=== PATIENT | female | born 1960 | race Caucasian/White ===

== ENCOUNTER → 2018-07-27 | Outpatient (CLI) | payer SELFPAY ==
[2015-04-04 04:52] VITALS: BP 148/75
[~2018-07-27] MED LIST: CITA20TA6 PO; CRESTOR10 MG PO; GABA-586 PO; INSU100I13 SQ; LISI1TAB7 PO; METF500T16 PO; METO25TA4 PO; MOME17SP NS; UBID100C40 PO
[2018-07-27 17:57] LABS: BASO # 0.1 x10^3/uL (0.0-0.2); BASO % 1 % (0-3); EOS # 0.5 x10^3/uL (0.0-0.7); EOS % 6 % (0-3); HEMATOCRIT 41.6 % (36.0-47.0); HEMOGLOBIN 14.3 g/dL (12.0-15.5); LYMPH # 2.3 x10^3/uL (1.0-4.8); LYMPH % 27 % (24-48); MEAN CORPUSCULAR HEMOGLOBIN 28 pg (25-35); MEAN CORPUSCULAR HGB CONC 34 g/dL (31-37); MEAN CORPUSCULAR VOLUME 82 fL (79-100); MONO # 0.6 x10^3/uL (0.0-1.1); MONO % 7 % (0-9); NEUT # 5.1 x10^3uL (1.8-7.7); NEUT % 60 % (31-73); PLATELET COUNT 249 x10^3/uL (140-400); RED BLOOD COUNT 5.05 x10^6/uL (3.50-5.40); RED CELL DISTRIBUTION WIDTH 14.5 % (11.5-14.5); WHITE BLOOD COUNT 8.6 x10^3/uL (4.0-11.0)
[2018-07-27 18:14] LABS: ALBUMIN 3.1 g/dL (3.4-5.0); ALBUMIN/GLOBULIN RATIO 0.9 (1.0-1.7); CALCIUM 8.9 mg/dL (8.5-10.1); CREATININE 1.6 mg/dL (0.6-1.0); GFR 33.3; POTASSIUM 4.7 mmol/L (3.5-5.1); TOTAL BILIRUBIN 0.4 mg/dL (0.2-1.0); TOTAL PROTEIN 6.6 g/dL (6.4-8.2)
[2018-07-28 02:18] LABS: HEMOGLOBIN A1C 8.1 % (4.8-5.6)
== END | disposition home or self-care (01) ==
LOC: SPEC 17:28
PROVIDERS: ATTEND Family Medicine
DX: E11.9 Type 2 diabetes mellitus without complications (principal); I10 Essential (primary) hypertension
CPT/HCPCS: 36415; 80053; 83036; 84443; 85025

== ENCOUNTER 2020-08-25 16:57 | Inpatient (IN) | payer BC ==
[~2020-08-25] VITALS: Ht 170.2 cm; Wt 113.8 kg
[~2020-08-25 16:57] MED LIST changes: +LISI1TAB20 PO; -LISI1TAB7 PO
[2020-08-25] MEDS ORDERED: IV NORMAL SALINE 1,000ML 1,000 ML IV ONE (17:15)
--- NOTE | 2020-08-25 17:18 | RAD ---
EXAM: CT Head without IV contrast INDICATION: Reason: slurred speech, right facial droop, right weakness / Spl. Instructions: / Histor y: TECHNIQUE: Multi-detector row CT images were obtained of the head without the use of IV contrast. All CT scans performed at this facility utilize dose optimization techniques as appropriate to the exam, including the following: Automated exposure control and adjustment of the mA and/or KV according to patient size (this includes techniques or standardized protocols for targeted exams where dose is ind ication/reason for exam). COMPARISON: None FINDINGS: BRAIN PARENCHYMA: No evidence of acute intraparenchymal hemorrhage or infarct. Generalized parenchyma l volume loss and white matter low density compatible chronic ischemic microvascular changes present VENTRICLES & EXTRA-AXIAL SPACES: Ventricles are within normal limits. Basilar cisterns are patent. N o pathologic extra-axial fluid collection or mass. ORBITS: Orbital contents are unremarkable. SINUSES: Visualized paranasal sinuses and mastoid air cells are clear. OSSEOUS & SOFT TISSUES: Calvarium and skull base are intact. IMPRESSION: No acute intracranial pathology. FOR INTERNAL CODING PURPOSES Critical result: Findings discussed with Dr. Jack Rendon at 08/25/2020 5:15 PM. RESULT CODE: (C) Electronically signed by: Franny Lacey MD (08/25/2020 5:15 PM) [id number]
--- NOTE | 2020-08-25 17:57 | RAD ---
INDICATION: Reason: CODE stroke, right sided weakness, slurred speech / Spl. Instructions: / History : COMPARISON: March 2015 FINDINGS: Single view of chest obtained. Prominent cardiomediastinal silhouette likely exaggerated by portable technique. Left lung base is la rgely obscured by overlying cardiac silhouette. Mild interstitial opacities bilaterally IMPRESSION: * Mild interstitial opacities bilaterally without a well-defined focal airspace consolidation. Electronically signed by: Noah Rubio MD (08/25/2020 5:54 PM) [id number]
--- NOTE | 2020-08-25 18:00 | PHYS DOC ---
Past History Past Medical History: Diabetes, High Cholesterol, Hypertension, Other Past Surgical History: Other Smoking: Non-smoker Alcohol Use: Rarely Drug Use: None General Adult EDM: Chief Complaint: NEURO SYMPTOMS/DEFICITS HPI: HPI: 60 year old female presents via EMS as CODE STROKE activation. Patient reports she awoke this AM with right sided weakness including facial droop and facial numbness and slurred speech. Reports last known well was 2200 last night when she went to bed. Denies prior history of CVA. Reports risk factors of DM, HTN, and hyperchol. Denies trauma. Denies headache. Denies fever/chills. Denies cough. Denies use of blood thinners. Denies known exposure to COVID-19. Review of Systems: Review of Systems: Constitutional: Denies fever or chills Eyes: Denies redness or eye pain HENT: Denies nasal congestion or sore throat Respiratory: Denies cough or shortness of breath Cardiovascular: Denies chest pain or palpitations GI: Denies abdominal pain, nausea, or vomiting : Denies dysuria or hematuria Musculoskeletal: Denies back pain or joint pain Integument: Denies rash or skin lesions Neurologic: Denies headache; reports right sided weakness, facial droop, and slurred speech Complete systems were reviewed and found to be within normal limits, except as documented in this note. Current Medications: Current Meds: Current Medications Medications (Trade) Dose Ordered Sig/Fernando Start Time Stop Time Status Last Admin Dose Admin Sodium Chloride 1,000 ml @ 1,000 mls/hr 1X ONCE 08/25/20 17:15 08/25/20 18:14 Allergies: Allergies: Allergies Coded Allergies Type Severity Reaction Last Updated Verified shellfish derived Allergy Intermediate 08/25/20 Yes Physical Exam: PE: Constitutional: Well developed, well nourished, non-toxic appearance HENT: Normocephalic, atraumatic Eyes: PERRL, EOMI, conjunctiva normal, no discharge Neck: Normal range of motion, no tenderness, supple Lungs & Thorax: No respiratory distress, equal chest rise and fall Abdomen: Soft, no tenderness Skin: Warm, dry, no erythema, no rash Back: No tenderness, no CVA tenderness Extremities: No tenderness, ROM intact, no edema Neurologic: Alert and oriented X 3, moderate dysarthria and right facial droop noted, right leg with slight drift on straight leg, and decreased sensation to right face in comparison, no other focal deficit noted with NIHSS testing (see attached) Psychologic: Affect normal, judgment normal Current Patient Data: Labs: Laboratory Tests Test 08/25/20 17:11 Glucose (Fingerstick) 224 mg/dL (70-99) H EKG: EKG: @1708 NSR at 87bpm, NO ST elevation, QRS 84ms, QT/QTc 390/470ms Radiology/Procedures: Radiology/Procedures: PROCEDURE: CT CODE STROKE HEAD WO EXAM: CT Head without IV contrast INDICATION: Reason: slurred speech, right facial droop, right weakness / Spl. Instructions: / History: TECHNIQUE: Multi-detector row CT images were obtained of the head without the use of IV contrast. All CT scans performed at this facility utilize dose optimization techniques as appropriate to the exam, including the following: Automated exposure control and adjustment of the mA and/or KV according to patient size (this includes techniques or standardized protocols for targeted exams where dose is indication/reason for exam). COMPARISON: None FINDINGS: BRAIN PARENCHYMA: No evidence of acute intraparenchymal hemorrhage or infarct. Generalized parenchymal volume loss and white matter low density compatible chronic ischemic microvascular changes present VENTRICLES & EXTRA-AXIAL SPACES: Ventricles are within normal limits. Basilar cisterns are patent. No pathologic extra-axial fluid collection or mass. ORBITS: Orbital contents are unremarkable. SINUSES: Visualized paranasal sinuses and mastoid air cells are clear. OSSEOUS & SOFT TISSUES: Calvarium and skull base are intact. IMPRESSION: No acute intracranial pathology. FOR INTERNAL CODING PURPOSES Critical result: Findings discussed with Dr. Jack Caruso at 08/25/2020 5:15 PM. RESULT CODE: (C) PROCEDURE: CHEST AP ONLY INDICATION: Reason: CODE stroke, right sided weakness, slurred speech / Spl. Instructions: / History: COMPARISON: March 2015 FINDINGS: Single view of chest obtained. Prominent cardiomediastinal silhouette likely exaggerated by portable technique. Left lung base is largely obscured by overlying cardiac silhouette. Mild interstitial opacities bilaterally IMPRESSION: * Mild interstitial opacities bilaterally without a well-defined focal airspace consolidation. Electronically signed by: Noah Rubio MD (08/25/2020 5:54 PM) [id number] Electronically signed by: Franny Lacey MD (08/25/2020 5:15 PM) [id number] Course & Med Decision Making: Course & Med Decision Making Pertinent Labs and Imaging studies reviewed. (See chart for details) Patient presents via EMS as CODE STROKE. Last known well at 2200 last night when patient went to bed. Patient reports she awoke with the symptoms. NIHSS 4. CT head without acute process. EKG stable. Labs obtained and posted to chart. CXR stable. ASA given. Patient with significantly elevated blood pressure requiring treatment. Patient outside window for TPA or for neuro-intervention at this time. Patient requiring admission for further evaluation and treatment. Discussed with Dr. Candelaria (hospitalist) who is in agreement with admission. Discussed case with Dr. Mcdonnell (neurology) regarding consultation and in agreement. Discussed findings and plan with patient, who acknowledges understanding and agreement. Dragon Disclaimer: Dragon Disclaimer: This electronic medical record was generated, in whole or in part, using a voice recognition dictation system. Departure Departure: Impression: Primary Impression: Acute ischemic stroke Additional Impression: Hypertensive urgency Disposition: ADMITTED INPT THIS HOSP Admitting Physician: Anni Candelaria Condition: GUARDED Referrals: PCP,NO (PCP) NIHSS - ED NIH Stroke Scale: NIH Stroke Scale Response (Comments) Value Level of Consciousness: 0 Alert/Responsive 0 LOC Questions: 0 Answers both correctly 0 LOC Commands: 0 Performs both tasks 0 Best Gaze: 0 Normal 0 Visual: 0 No visual loss 0 Facial Palsy: 1 Minor paralysis 1 Motor - Left Arm 0 No drift 0 Motor - Right Arm 0 No drift 0 Motor - Left Leg 0 No drift 0 Motor: Right Leg 1 Drift but can hold 1 Limb Ataxia: 0 Absent 0 Sensory: 1 Mid to moderate loss 1 Best Language: 0 Normal 0 Dysathria: 1 Mild to moderate 1 Extinction and Inattention: 0 Normal 0 Total 4 Critical Care Time Critical care time was 30 minutes which includes time at bedside, spent in discussion of patient's care with specialists and/or family members, with interpretation of laboratory and/or radiological studies and is exclusive of procedures. JACK CARUSO DO Aug 25, 2020 18:00
[2020-08-25 18:05] LABS: BASO # 0.1 x10^3/uL (0.0-0.2); BASO % 1 % (0-3); EOS # 0.5 x10^3/uL (0.0-0.7); EOS % 6 % (0-3); HEMATOCRIT 35.6 % (36.0-47.0); HEMOGLOBIN 11.9 g/dL (12.0-15.5); LYMPH % 23 % (24-48); MEAN CORPUSCULAR HEMOGLOBIN 27 pg (25-35); MEAN CORPUSCULAR HGB CONC 33 g/dL (31-37); MEAN CORPUSCULAR VOLUME 81 fL (79-100); MONO # 0.6 x10^3/uL (0.0-1.1); MONO % 7 % (0-9); NEUT # 5.5 x10^3uL (1.8-7.7); NEUT % 64 % (31-73); PLATELET COUNT 233 x10^3/uL (140-400); RED CELL DISTRIBUTION WIDTH 14.5 % (11.5-14.5); WHITE BLOOD COUNT 8.6 x10^3/uL (4.0-11.0)
[2020-08-25 18:11] LABS: CALCIUM 7.9 mg/dL (8.5-10.1); CREATININE 2.5 mg/dL (0.6-1.0); GFR 19.8; POTASSIUM 3.9 mmol/L (3.5-5.1)
[2020-08-25] MEDS ORDERED: DEXTROSE 50% 25 GM / 50ML DISP.SYRIN. IV PRN (18:15)
[2020-08-25] MEDS ORDERED: ASPIRIN ENTERIC COATED 325 MG TABLET.DR. PO ONE (18:15)
[2020-08-25] MEDS ORDERED: LABETALOL 20 MG/4 ML DISP.SYRIN. IVP ONE (18:15)
--- NOTE | 2020-08-25 18:15 | EKG ---
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
[2020-08-25 18:33] LABS: ALBUMIN 2.3 g/dL (3.4-5.0); ALBUMIN/GLOBULIN RATIO 0.7 (1.0-1.7); TOTAL BILIRUBIN 0.2 mg/dL (0.2-1.0); TOTAL PROTEIN 5.4 g/dL (6.4-8.2)
[2020-08-25] MEDS ORDERED: hydrALAZINE 20 MG/ML VIAL. IV ONE (18:45)
[2020-08-25 20:23] VITALS: BP 213/94
[2020-08-25 21:49] VITALS: BP 184/75
[2020-08-25] MEDS: hydrALAZINE 20 MG/ML VIAL. IV PRN (23:06)
[2020-08-25 23:35] VITALS: BP 161/93
[2020-08-25] MEDS ORDERED: GLIP-24 PO (23:35)
[2020-08-25] MEDS ORDERED: LISI1TAB23 PO (23:35)
[2020-08-25] MEDS ORDERED: ATOR40TA59 PO (23:35)
--- NOTE | 2020-08-25 23:36 | NUR ---
PT presented with RT-sided weakness of upper and lower extremities with RT-sided facial droop. PT with noted slurring. PT states she awoke this am with these symptoms but thought she slept wrong and went to work. 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 PT states that no one noticed anything all day. PT ate and drank as usual. PT had a cane for when she injured her foot and used that today. Swallow ability tested with water. PT with noted aspiration/coughing on very large drink; none with small sips. PT advised to take smaller sips. After several hours, PT asked for a snack, given yogurt, tolerated well. Reviewed with PT her PMH, PSH, SH, FH and medications. PT belongings noted. Vital signs obtained.
--- NOTE | 2020-08-25 23:46 | NUR ---
PT made NPO. MAIL CLERK BILLS ordered for am.
[2020-08-26] VITALS (8 sets, daily range): BP systolic 138–250; BP diastolic 75–116
[2020-08-26] MEDS: ONDANSETRON PF 4 MG/2 ML VIAL. IVP PRN ×3 (01:03→09:51)
[2020-08-26 02:06] LABS: BARBITURATES NEG (NEG); BENZODIAZEPINES NEG (NEG); CANNABINOIDS NEG (NEG); COCAINE NEG (NEG); METHADONE NEG (NEG); OPIATES NEG (NEG); PHENCYCLIDINE NEG (NEG)
[2020-08-26 02:09] LABS: AMPHETAMINE/METHAMPHETAMINE NEG (NEG)
[2020-08-26 02:14] LABS: BACTERIA,URINE FEW /HPF (0-FEW); BILIRUBIN,URINE NEG (NEG); CLARITY,URINE CLEAR; COLOR,URINE YELLOW; GLUCOSE,URINE 250 mg/dL (NEG); NITRITE,URINE NEG (NEG); RBC,URINE OCC /HPF (0-2); SQUAMOUS EPITHELIAL CELL,UR FEW /LPF; UROBILINOGEN,URINE 0.2 mg/dL (0.2 mg/dL)
[2020-08-26] MEDS: hydrALAZINE 20 MG/ML VIAL. IV PRN (05:31)
[2020-08-26 06:32] LABS: BASO # 0.1 x10^3/uL (0.0-0.2); BASO % 1 % (0-3); EOS # 0.3 x10^3/uL (0.0-0.7); EOS % 2 % (0-3); HEMATOCRIT 34.8 % (36.0-47.0); HEMOGLOBIN 11.4 g/dL (12.0-15.5); LYMPH # 1.2 x10^3/uL (1.0-4.8); LYMPH % 11 % (24-48); MEAN CORPUSCULAR HEMOGLOBIN 27 pg (25-35); MEAN CORPUSCULAR HGB CONC 33 g/dL (31-37); MEAN CORPUSCULAR VOLUME 82 fL (79-100); MONO # 0.5 x10^3/uL (0.0-1.1); MONO % 4 % (0-9); NEUT % 82 % (31-73); PLATELET COUNT 230 x10^3/uL (140-400); RED BLOOD COUNT 4.25 x10^6/uL (3.50-5.40); RED CELL DISTRIBUTION WIDTH 14.1 % (11.5-14.5); WHITE BLOOD COUNT 11.1 x10^3/uL (4.0-11.0)
[2020-08-26] MEDS: LABETALOL 20 MG/4 ML DISP.SYRIN. IVP PRN ×2 (06:34→13:18)
[2020-08-26 06:46] LABS: ALBUMIN 2.2 g/dL (3.4-5.0); ALBUMIN/GLOBULIN RATIO 0.6 (1.0-1.7); CREATININE 2.4 mg/dL (0.6-1.0); GFR 20.7; POTASSIUM 3.4 mmol/L (3.5-5.1); TOTAL BILIRUBIN 0.4 mg/dL (0.2-1.0); TOTAL PROTEIN 5.9 g/dL (6.4-8.2)
--- NOTE | 2020-08-26 06:59 | NUR ---
PT with increasing BP, meds given. Ineffective first dosing this am. Labetolol IVP added. PT with N/V, given Zofran, noted improvement. BP rechecked, improvement noted.
[2020-08-26] MEDS: INSULIN LISPRO 300 UNITS/3 ML VIAL. SQ SCH ×2 (08:00→12:00)
[2020-08-26] MEDS ORDERED: metFORMIN 500 MG TABLET PO SCH (08:00)
--- NOTE | 2020-08-26 08:40 | PDOC2 ---
CARDIAC CONSULT DATE OF CONSULT DOS: DATE: 08/26/20 TIME: 08:31 REASON FOR CONSULT Reason for Consult Increased troponin CVA REFERRING PHYSICIAN Referring Physician Dr. Candelaria SOURCE Source: Chart review, Patient HPI History of Present Illness This is a 60 yo female who presented secondary to right sided weakness and facial drop. Patient reports this began upon awakening yesterday morning. Denies any associated dizziness, diaphoresis, chest pain, or nausea/vomiting. No recent fevers or illness. Blood pressure significantly elevated upon arrival. Reports complains with meds at home. PAST MEDICAL HISTORY Cardiovascular: HTN, hyperipidemia Renal/: Chronic renal insuff Endocrine: Diabetes PAST SURGICAL HISTORY Past Surgical History: Cholecystectomy, Tubal Ligation FAMILY HISTORY Family History: Diabetes, Hypertension SOCIAL HISTORY Smoke: Quit ALCOHOL: none Drugs: None Lives: with Family CURRENT MEDICATIONS Current Medications Current Medications Sodium Chloride 1,000 ml @ 1,000 mls/hr 1X ONCE IV Last administered on 08/25/20at 18:15; Start 08/25/20 at 17:15; Stop 08/25/20 at 18:14; Status DC Labetalol HCl (Normodyne) 10 mg 1X ONCE IVP Last administered on 08/25/20at 18 :16; Start 08/25/20 at 18:15; Stop 08/25/20 at 18:16; Status DC Aspirin (Aspirin Enteric Coated) 325 mg 1X ONCE PO Last administered on 08/25/20at 18:15; Start 08/25/20 at 18:15; Stop 08/25/20 at 18:16; Status DC Insulin Human Lispro (HumaLOG) 0-5 UNITS TIDWMEALS SQ ; Start 08/26/20 at 08:00 Dextrose (Dextrose 50%-Water Syringe) 12.5 gm PRN Q15MIN PRN IV SEE COMMENTS; Start 08/25/20 at 18:15 Ondansetron HCl (Zofran) 4 mg PRN Q4HRS PRN IVP NAUSEA/VOMITING Last administered on 08/26/20at 06:31; Start 08/25/20 at 18:15; Stop 08/26/20 at 18:14 Hydralazine HCl (Apresoline) 20 mg 1X ONCE IV Last administered on 08/25/20at 18:45; Start 08/25/20 at 18:45; Stop 08/25/20 at 18:46; Status DC Hydralazine HCl (Apresoline) 10 mg PRN Q4HRS PRN IV ELEVATED BP, SEE COMMENTS Last administered on 08/26/20at 05:31; Start 08/25/20 at 19:00 Citalopram Hydrobromide (CeleXA) 20 mg DAILY PO ; Start 08/26/20 at 09:00 Gabapentin (Neurontin) 300 mg BID PO ; Start 08/26/20 at 09:00 Glipizide (Glucotrol Er) 5 mg DAILY PO ; Start 08/26/20 at 09:00 Metformin HCl (Glucophage) 500 mg DAILYWBKFT PO ; Start 08/26/20 at 08:00; Status UNV Metoprolol Tartrate (Lopressor) 50 mg BID PO ; Start 08/26/20 at 09:00 Atorvastatin Calcium (Lipitor) 40 mg QHS PO ; Start 08/26/20 at 21:00 Lisinopril (Prinivil) 10 mg DAILY PO ; Start 08/26/20 at 09:00 Hydrochlorothiazide (Microzide) 12.5 mg DAILY PO ; Start 08/26/20 at 09:00 Labetalol HCl (Normodyne) 20 mg PRN Q4HRS PRN IVP HYPERTENSION Last administered on 08/26/20at 06:34; Start 08/26/20 at 06:30 Active Scripts Active Reported Glipizide Xl (Glipizide) 5 Mg Tab.er.24 1 Tab PO DAILY 30 Days Atorvastatin Calcium 40 Mg Tablet 1 Tab PO QHS Lisinopril-Hctz 10-12.5 Mg Tab (Lisinopril/Hydrochlorothiazide) 1 Each Tablet 1 Tab PO DAILY Citalopram Hbr (Citalopram Hydrobromide) 20 Mg Tablet 20 Mg PO DAILY for mood last dose this morning next dose tomorrow morning Metoprolol Tartrate 25 Mg Tablet 50 Mg PO BID written Rx provided for high blood pressure last dose today after test next dose tonight Metformin Hcl 500 Mg Tablet 500 Mg PO DAILYWBKFT for high blood sugar held during admission Gabapentin (Gabapentin) 300 Mg Capsule 300 Mg PO TID for neuropathy last dose 04/02 @ bedtime next dose tonight @ bedtime ALLERGIES Allergies: Coded Allergies: shellfish derived (Verified Allergy, Intermediate, 2/1/21) ROS Review of Systems 14 point ROS conducted with pertinent positives noted above in HPI PHYSICAL EXAM General: Alert, Oriented X3, Cooperative, No acute distress HEENT: Atraumatic Lungs: Clear to auscultation Heart: Regular rate (SR) Abdomen: Soft, No tenderness Extremities: No edema, Normal pulses Skin: No breakdown Neuro: Normal speech, Sensation intact, Other (right facial droop) Psych/Mental Status: Mental status NL, Mood NL MUSCULOSKELETAL: Abnormal exam of right (right sided weakness) VITALS Vital Signs Vital Signs Date Time Temp Pulse Resp B/P (MAP) Pulse Ox O2 Delivery O2 Flow Rate FiO2 08/26/20 06:56 83 16 138/75 (96) 91 Room Air 08/26/20 06:11 98.1 LABS LABS Laboratory Tests Test 08/25/20 17:03 08/25/20 17:11 08/25/20 21:13 08/25/20 22:52 White Blood Count 8.6 x10^3/uL (4.0-11.0) Red Blood Count 4.40 x10^6/uL (3.50-5.40) Hemoglobin 11.9 g/dL (12.0-15.5) Hematocrit 35.6 % (36.0-47.0) Mean Corpuscular Volume 81 fL (79-100) Mean Corpuscular Hemoglobin 27 pg (25-35) Mean Corpuscular Hemoglobin Concent 33 g/dL (31-37) Red Cell Distribution Width 14.5 % (11.5-14.5) Platelet Count 233 x10^3/uL (140-400) Neutrophils (%) (Auto) 64 % (31-73) Lymphocytes (%) (Auto) 23 % (24-48) Monocytes (%) (Auto) 7 % (0-9) Eosinophils (%) (Auto) 6 % (0-3) Basophils (%) (Auto) 1 % (0-3) Neutrophils # (Auto) 5.5 x10^3uL (1.8-7.7) Lymphocytes # (Auto) 2.0 x10^3/uL (1.0-4.8) Monocytes # (Auto) 0.6 x10^3/uL (0.0-1.1) Eosinophils # (Auto) 0.5 x10^3/uL (0.0-0.7) Basophils # (Auto) 0.1 x10^3/uL (0.0-0.2) Prothrombin Time 10.0 SEC (9.4-11.4) Prothromb Time International Ratio 1.0 (0.9-1.1) Activated Partial Thromboplast Time 24 SEC (23-33) Sodium Level 141 mmol/L (136-145) Potassium Level 3.9 mmol/L (3.5-5.1) Chloride Level 106 mmol/L (98-107) Carbon Dioxide Level 27 mmol/L (21-32) Anion Gap 8 (6-14) Blood Urea Nitrogen 27 mg/dL (7-20) Creatinine 2.5 mg/dL (0.6-1.0) Estimated GFR (Cockcroft-Gault) 19.8 BUN/Creatinine Ratio 11 (6-20) Glucose Level 194 mg/dL (70-99) Lactic Acid Level 0.8 mmol/L (0.4-2.0) Calcium Level 7.9 mg/dL (8.5-10.1) Total Bilirubin 0.2 mg/dL (0.2-1.0) Aspartate Amino Transf (AST/SGOT) 14 U/L (15-37) Alanine Aminotransferase (ALT/SGPT) 16 U/L (14-59) Alkaline Phosphatase 98 U/L (46-116) Creatine Kinase 76 U/L (26-192) Creatine Kinase MB (Mass) 2.0 ng/mL (0.0-3.6) Creatine Kinase MB Relative Index 2.6 % (0-4) Troponin I Quantitative 0.032 ng/mL (0-0.055) 0.044 ng/mL (0-0.055) Total Protein 5.4 g/dL (6.4-8.2) Albumin 2.3 g/dL (3.4-5.0) Albumin/Globulin Ratio 0.7 (1.0-1.7) Ethyl Alcohol Level < 10 mg/dL (0-10) Glucose (Fingerstick) 224 mg/dL (70-99) 178 mg/dL (70-99) Test 08/26/20 00:35 08/26/20 01:34 08/26/20 05:35 Troponin I Quantitative 0.089 ng/mL (0-0.055) Urine Collection Type Unknown Urine Color Yellow Urine Clarity Clear Urine pH 7.0 Urine Specific [place] 1.020 Urine Protein >100 mg/dl (NEG-TRACE) Urine Glucose (UA) 250 mg/dL (NEG) Urine Ketones (Stick) Neg mg/dL (NEG) Urine Blood Small (NEG) Urine Nitrite Neg (NEG) Urine Bilirubin Neg (NEG) Urine Urobilinogen Dipstick 0.2 mg/dL (0.2 mg/dL) Urine Leukocyte Esterase Neg (NEG) Urine RBC Occ /HPF (0-2) Urine WBC 5-10 /HPF (0-4) Urine Squamous Epithelial Cells Few /LPF Urine Bacteria Few /HPF (0-FEW) Urine Opiates Screen Neg (NEG) Urine Methadone Screen Neg (NEG) Urine Barbiturates Neg (NEG) Urine Phencyclidine Screen Neg (NEG) Urine Amphetamine/Methamphetamine Neg (NEG) Urine Benzodiazepines Screen Neg (NEG) Urine Cocaine Screen Neg (NEG) Urine Cannabinoids Screen Neg (NEG) Urine Ethyl Alcohol Neg (NEG) White Blood Count 11.1 x10^3/uL (4.0-11.0) Red Blood Count 4.25 x10^6/uL (3.50-5.40) Hemoglobin 11.4 g/dL (12.0-15.5) Hematocrit 34.8 % (36.0-47.0) Mean Corpuscular Volume 82 fL (79-100) Mean Corpuscular Hemoglobin 27 pg (25-35) Mean Corpuscular Hemoglobin Concent 33 g/dL (31-37) Red Cell Distribution Width 14.1 % (11.5-14.5) Platelet Count 230 x10^3/uL (140-400) Neutrophils (%) (Auto) 82 % (31-73) Lymphocytes (%) (Auto) 11 % (24-48) Monocytes (%) (Auto) 4 % (0-9) Eosinophils (%) (Auto) 2 % (0-3) Basophils (%) (Auto) 1 % (0-3) Neutrophils # (Auto) 9.0 x10^3uL (1.8-7.7) Lymphocytes # (Auto) 1.2 x10^3/uL (1.0-4.8) Monocytes # (Auto) 0.5 x10^3/uL (0.0-1.1) Eosinophils # (Auto) 0.3 x10^3/uL (0.0-0.7) Basophils # (Auto) 0.1 x10^3/uL (0.0-0.2) Sodium Level 142 mmol/L (136-145) Potassium Level 3.4 mmol/L (3.5-5.1) Chloride Level 106 mmol/L (98-107) Carbon Dioxide Level 23 mmol/L (21-32) Anion Gap 13 (6-14) Blood Urea Nitrogen 24 mg/dL (7-20) Creatinine 2.4 mg/dL (0.6-1.0) Estimated GFR (Cockcroft-Gault) 20.7 BUN/Creatinine Ratio 10 (6-20) Glucose Level 229 mg/dL (70-99) Calcium Level 8.0 mg/dL (8.5-10.1) Total Bilirubin 0.4 mg/dL (0.2-1.0) Aspartate Amino Transf (AST/SGOT) 14 U/L (15-37) Alanine Aminotransferase (ALT/SGPT) 16 U/L (14-59) Alkaline Phosphatase 90 U/L (46-116) Total Protein 5.9 g/dL (6.4-8.2) Albumin 2.2 g/dL (3.4-5.0) Albumin/Globulin Ratio 0.6 (1.0-1.7) ECHOCARDIOGRAM Echocardiogram <Conclusion> The left ventricle is normal size. Left ventricle systolic function is normal. The Ejection Fraction is 60-65%. There is borderline concentric left ventricular hypertrophy. There is no significant aortic valvular stenosis. Doppler and Color Flow revealed no significant aortic regurgitation. Doppler and Color Flow revealed mild mitral regurgitation. Doppler and Color Flow revealed trace tricuspid regurgitation. The PA pressure was estimated at 29 mmHg. There is no evidence of significant pericardial effusion. DATE: 04/02/15 1228 ASSESSMENT/PLAN Assessment/Plan 1. Acute onset right sided weakness, probable acute CVA 2. ROLANDA on CKD 3. Hypertensive urgency; better this am 4. Elevated troponin; highest 0.089. Most probable type II, demand ischemia in setting of above 5. Hyperlipidemia; statin 6. Diabetes, II 7. Hypokalemia Recommendations Secondary prevention ASA, statin Lipids Echo to assess LV systolic function, r/o cardiac anomalies Resume home antiHTN therapy Hydralazine IV PRN Allow for higher baseline blood pressure given concerns for acute stroke Replace K. Check Mg and replace as warranted Rehab modalities Follow neuro recs BRIAN DECKER APRN Aug 26, 2020 08:40
[2020-08-26] MEDS ORDERED: LISINOPRIL 10 MG TABLET PO SCH (09:00)
[2020-08-26] MEDS ORDERED: CITALOPRAM 20 MG TABLET. PO SCH (09:00)
[2020-08-26] MEDS ORDERED: METOPROLOL TART IMMED RELEASE 25 MG TABLET. PO SCH (09:00)
[2020-08-26] MEDS ORDERED: hydroCHLOROthiazide 12.5 MG CAPSULE PO SCH (09:00)
[2020-08-26] MEDS ORDERED: GABAPENTIN 300 MG CAPSULE. PO SCH (09:00)
[2020-08-26] MEDS ORDERED: POTASSIUM CHLORIDE 20 MEQ TABLET.ER. PO ONE (10:00)
[2020-08-26] MEDS ORDERED: MAGNESIUM SULFATE 2GM 50 ML IV ONE ×2 (10:00→11:00)
[2020-08-26] MEDS ORDERED: ASPIRIN ENTERIC COATED 81 MG TABLET.DR. PO SCH (10:00)
--- NOTE | 2020-08-26 10:24 | CONS ---
DATE OF CONSULTATION: NEUROLOGY CONSULTATION REFERRING PHYSICIAN: Dr. Candelaria REASON FOR CONSULTATION: Slurred speech and weakness of the right upper and lower extremities, rule out acute stroke. HISTORY OF PRESENT ILLNESS: This is a 60-year-old right-handed female who has had longstanding history of hypertension, diabetes mellitus and hyperlipidemia, stated she was admitted through Emergency Room after she woke up the morning of yesterday with severe headaches, slurred speech and weakness of the right upper and lower extremities. She denies any chest pain, but she experience shortness of breath. On arrival to the Emergency Room, her blood pressure was 206/87. She also complains of numbness and paresthesia of the hands. Initial nonenhanced head CT scan revealed no acute intracranial process. During the day, her blood pressure was markedly elevated and this morning was 250/98. She was treated with hydralazine and labetalol intravenously. This morning, the patient denies chest pain, shortness of breath, visual disturbances, but she continues to have right-sided weakness and paresthesia of both hands along with slurred speech and right facial drooping. PAST MEDICAL HISTORY: Significant for hypertension, hyperlipidemia, diabetes mellitus, depressions, obesity, right eye detachment and history of diabetic retinopathy. PAST SURGICAL HISTORY: Positive for x 4, cholecystectomy. FAMILY HISTORY: Positive for obesity. Father had hypertension. Mother had diabetes mellitus and depression. 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 CURRENT HOME MEDICATIONS: Lipitor 40 mg daily, gabapentin 300 mg t.i.d., glipizide 5 mg daily, Celexa 20 mg daily, metformin 500 mg daily, insulin Humalog on sliding scale. HOSPITAL MEDICATIONS: Labetalol 20 mg q. 4 hours p.r.n. intravenously for severe hypertension and hydralazine 10 mg q.4 hours p.r.n. for severe hypertension, Microzide 12.5 mg daily, metoprolol 50 mg b.i.d. ALLERGIES: SHELLFISH ____. REVIEW OF SYSTEMS: A 14-point review of system was performed as mentioned above in history of present illness and consistent with slurred speech, right facial drooping and right-sided weakness. PHYSICAL EXAMINATION: GENERAL: Obese female, not in acute distress. She weighs 113.8 kilos. VITAL SIGNS: Blood pressure 138/75, respiratory rate 16, pulse is 83, temperature is 98.1, oxygen saturation 91% on room air. HEENT: Normocephalic, atraumatic, otherwise unremarkable. NECK: Supple. Negative for carotid bruit, lymphadenopathy or thyromegaly. LUNGS: Clear to A and P. CARDIOVASCULAR: Regular rate and rhythm. Normal S1, S2. There is no S3, S4 or murmur. ABDOMEN: Soft. Bowel sounds positive. EXTREMITIES: Negative for cyanosis, clubbing or edema. NEUROLOGIC: Mental Status: The patient is alert and oriented x 3. The speech is slurred. There is no language dysfunction. Memory, judgment, and abstracting thinking are normal. The patient denies hallucination or delusion. Cranial Nerves: Visual knight are full. The pupils are reactive to light and accommodation. The extraocular movements are intact. There is no nystagmus. There is right facial asymmetry of central type. There is no language dysfunction. Hearing is intact bilaterally. The palate is elevated symmetrically. Sternocleidomastoid muscles are powerful bilaterally. The patient shrugs her shoulders symmetrically, protrudes her tongue in the midline without fasciculation or atrophy. Motor Examination: No focal muscle bulk was seen. The tone is normal. The strength is 4/5 in the right upper and lower extremities compared with those on the left side. Sensory Examination: Revealed normal pinprick, light touch, vibratory and position senses. Deep tendon reflexes were symmetric and hypoactive with absent Achilles responses. Gait: Not tested. LABORATORY DATA: CBC revealed white blood cells of 11.1 thousand, hemoglobin 11.4, hematocrit 34.8, platelet count 230,000. Chemistry revealed sodium of 142, potassium 3.4, chloride 106, CO2 of 23, BUN 24, creatinine 2.4, glucose is 229, calcium is 8. Troponin level is 0.089. Urinalysis is negative urinary leukocyte esterase with white blood cells of 5-10. Urine drug screen is negative. IMPRESSION: 1. Status post acute stroke resulted in dense right hemiparesis and slurred speech secondary to right facial droop. The patient has multiple risk factors including emergent hypertension, diabetes mellitus, hyperlipidemia. 2. Multiple medical problems include hypertension, diabetes mellitus, hyperlipidemia, obesity, mild hypokalemia and renal disease/renal insufficiency. RECOMMENDATIONS: Complete stroke workup including echocardiogram, antiplatelet agents, aspirin 325 mg daily, patient needs PT/OT evaluation and treat the underlying multiple risk factors for stroke. The patient also needs brain MRI after she became medically stable. M Blaine CESAR MD DR: LUIS A/raul JOB#: [id number] / [id number]
--- NOTE | 2020-08-26 11:02 | RAD ---
PQRS Compliance Statement: One or more of the following individualized dose reduction techniques were utilized for this examinat ion: 1. Automated exposure control 2. Adjustment of the mA and/or kV according to patient size 3. Use of iterative reconstruction technique CT head without contrast 08/26/2020 10:27 AM INDICATION: Facial droop yesterday COMPARISON: CT head 08/25/2020 TECHNIQUE: Multiple axial CT images of the head were obtained from skull base through the vertex with out intravenous contrast. FINDINGS: Head: Ventricles, sulci and basal cisterns are within normal limits. There is no hydrocephalus. Fajardo-white matter differentiation is normal. There is no acute intracranial hemorrhage. There is no mass, mass e ffect or midline shift. Posterior fossa is normal in appearance. Stable calcified extra-axial lesion along the right frontal calvaria measuring 8.5 mm (series 2, image 19). Low-attenuation in the perive ntricular white matter is suggestive of chronic small vessel ischemic changes. Visualized portions of the orbits are normal. Paranasal sinuses are well aerated. Mastoid air cells a re well aerated. There is a stable calcified scalp lesion along the left frontal parietal scalp measu ring 1.2 cm. Calvaria is intact. IMPRESSION: No acute intracranial hemorrhage. Low-attenuation in the periventricular white matter is suggestive of chronic small vessel ischemic ch anges. No new areas of cerebral edema are suspected as compared to prior examination. Electronically signed by: Teresa Garcia MD (08/26/2020 11:00 AM) [id number]
[2020-08-26] MEDS ORDERED: ELECTROLYTE (NON-ICU) PROTOCOL. MC PRN (11:15)
--- NOTE | 2020-08-26 11:33 | HP ---
ADMIT DATE: 08/25/2020 HISTORY OF PRESENT ILLNESS: The patient is a 60-year-old female patient who basically came to the Emergency Room with complaint of weakness, unsteady on her feet, slurring of speech. She noted that yesterday morning when she woke up; however, she managed to go to school, work and come back home and according to her, nobody has noticed any right sided facial droop or slurring of speech and on arrival to the Emergency Room, her blood pressure was high at 206/87. She also complained of numbness and paresthesias of the hands. Initial nonenhanced CT scan revealed no acute intracranial process. Today, her blood pressure was markedly elevated and this morning was 250/98. She was treated with hydralazine and labetalol intravenously. According to the ER physician, she was outside the window for TPA and by the time she arrived here according to him, she displayed no focal deficit and therefore, the patient was admitted to [facility] for further evaluation and treatment, had her troponin was slightly elevated, so we consulted the manager environmental health and the neurologist. PAST MEDICAL HISTORY: Significant for type 2 diabetes mellitus since 2002, hypertension, hyperlipidemia, chronic kidney disease, generalized osteoarthritis, and peripheral neuropathy. PAST SURGICAL HISTORY: Significant for cholecystectomy, 4 C-sections and tubal ligation. ALLERGIES: She has no known drug allergies except to SHELLFISH DERIVATIVES. MEDICATIONS: She is currently on following medications: She is on atorvastatin calcium 40 mg at bedtime, metoprolol tartrate 50 mg twice a day, lisinopril/hydrochlorothiazide 10/12.5 mg once a day, gabapentin 300 mg 3 times a day, citalopram hydrobromide 20 mg daily, metformin 500 mg daily and glipizide 5 mg extended release 1 tablet once a day. FAMILY HISTORY: She has one half-sister and older brothers. Her father at the age of 72, the cause of which is not clear. Her mother at age of 47 because of breast cancer. SOCIAL HISTORY: She is , has 2 sons to live with her and her . She has another daughter and a son. She quit smoking in 1984. She does not drink alcohol nor does she smoke marijuana, but used CBD. 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 REVIEW OF SYSTEMS: The patient denied any blurring of vision, cataract, glaucoma or macular degeneration. She stated that she has had an injection in her left eye at the [facility] for swelling of her retina related to her diabetes, although she denied any cataract or laser treatment. Denied any macular degeneration. PHYSICAL EXAMINATION: GENERAL: On arrival to the Emergency Room, she apparently looked well and was clearly in no apparent respiratory distress. There is no pallor, jaundice, cyanosis or thyromegaly. No jugular venous distention. No limb edema. VITAL SIGNS: Her heart rate on arrival was 82, blood pressure was 206/87, temperature was 98.7, respiratory rate was 121 and oxygen saturation was 96% on room air. HEAD, EYES, EARS, NOSE AND THROAT: Showed normocephalic, atraumatic. NECK: Supple. HEART: Showed normal first and second heart sounds. No gallop, rub or murmur. CHEST: Clear to auscultation. No crepitation or rhonchi. ABDOMEN: Soft, nontender. NEUROLOGIC: She was alert, oriented x 3 with normal motor and normal sensory function with no obvious focal deficit. According to the ER physician, her extremities showed no clubbing, cyanosis or edema with normal range of movement. PSYCHOLOGICAL: Psychologically, the affect and judgment were normal. She has had an EKG done, which showed that she was in normal sinus rhythm at 87 beats per minute, no ST elevation. QRS duration of 84 milliseconds, QT corrected interval of 470 milliseconds. DIAGNOSTIC DATA: The CT scan of the head without contrast showed that there is no evidence of acute intraparenchymal hemorrhage or infarct, generalized parenchymal volume loss and white matter low density compatible with chronic ischemic microvascular changes. The ventricles are within normal limits. Basilar cisterns are patent. No pathological extraaxial fluid collection or mass effect. The orbital contents are unremarkable. Visualized paranasal sinuses and mastoid air cells are clear. The calvarium and skull base are intact. Her chest x-ray showed prominent cardiomediastinal silhouette, likely exaggerated by portable technique. Left lung base is largely obscured by overlying cardiac silhouette, mild interstitial opacities bilaterally. LABORATORY DATA: She has had lab work done, which showed a white cell count of 8600; hemoglobin 12; hematocrit 36; MCV 81; platelet count of 233,000 with manual differential showed 64% polymorphs; 73% lymphocytes and 7% monocytes. Her prothrombin time, INR and aPTT are normal. Her chemistry showed a serum sodium 141, potassium 3.9, chloride 106, bicarbonate 27, anion gap of 8, BUN 27, creatinine 2.5, estimated GFR was 20 mL per minute. Her glucose 194, calcium was 7.9. Total bilirubin, AST, ALT, alkaline phosphatase were normal. Her total protein 5.4, albumin was 2.3. Urinalysis showed the urine was yellow, clear with a pH of 7, specific gravity of 1.020. There is large amount of protein, large amount of glucose. The urine was negative for ketones, a small amount of blood, negative for nitrite and leukocyte esterase. There are occasional rbc's, 5-10 wbc's, and very few bacteria. Her drug toxic screen was negative for opiates, methadone, barbiturates, amphetamine, methamphetamine, benzodiazepine, cocaine, cannabinoids and alcohol. ASSESSMENT AND PLAN: The patient was basically admitted according to the ER physician with acute ischemic stroke. The ER physician stated that she was out of window for TPA and the patient was discussed with Dr. Mcdonnell regarding plan of management and was admitted for further evaluation and treatment. The patient has obviously multiple other medical problems including: A. hypertension, hyperlipidemia, chronic kidney disease, osteoarthritis, type 2 diabetes mellitus, diabetic peripheral neuropathy. We will obviously start her on sequential compressive devices to prevent DVT prophylaxis. Continue with all her other medications and we arranged for her to have a carotid Doppler and lipid profile. We have consulted also the manager environmental health given that her troponin was slightly elevated. BLADIMIR BATES MD DR: BOBBY/raul JOB#: [id number] / [id number]
--- NOTE | 2020-08-26 16:43 | PN ---
DATE: 08/26/2020 SUBJECTIVE: The patient was admitted yesterday through the Emergency Room with a complaint of severe headache, slurring of speech and weakness of the right upper and lower extremities. 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 Apparently nobody has noticed any abnormality, although she herself said that she was weak and unsteady and used her cane and the evaluation in the Emergency Room, it seemed that the patient's deafness has resolved as the neurological examination showed that the patient is alert, oriented x 3 with normal motor and sensory function and no focal deficits noted. However, when I saw her this morning, the patient was complaining of nausea. Her blood pressure was extremely high and she continued to have slurring of speech, right-sided facial droop and right-sided weakness. PHYSICAL EXAMINATION: GENERAL: When I examined her, she looked well and was clearly in no apparent respiratory distress. No pallor, jaundice, cyanosis or thyromegaly. No jugular venous distention. No limb edema. VITAL SIGNS: Her heart rate was 88, blood pressure was 142/83, temperature was 98.1, respiratory rate was 16, and oxygen saturation was 96% on room air. HEAD, EYES, EARS, NOSE, AND THROAT: Showed normocephalic, atraumatic. NECK: Supple. HEART: Showed normal first and second heart sounds. No gallop, rub or murmur. CHEST: Clear to auscultation. No crepitation or rhonchi. ABDOMEN: Distended, soft, nontender. NEUROLOGIC: She is awake, alert, responding appropriately. She definitely has right-sided facial droop and slurring of speech. She has also weakness in both right upper and right lower extremity with the right upper extremity much weaker than the right lower extremity. LABORATORY DATA: Her lab work this morning showed a white cell count of 11,100, hemoglobin 11, hematocrit 34, MCV 82 and platelet count 230,000 with a manual differential showed 82% polymorphs, 11% lymphocytes and 4% monocytes. Her chemistry this morning showed that her serum sodium was 142, potassium 3.4, chloride 106, bicarbonate 23, anion gap of 13, BUN 24, creatinine 2.4, estimated GFR was 20 mL per minute, her glucose 229, calcium was 8, magnesium was 1.2. Total bilirubin, AST, ALT, alkaline phosphatase were normal. Her second set of troponin was 0.160. Her total protein was 5.9, albumin was 2.2. ASSESSMENT: The patient has left middle cerebral artery territory infarct, right-sided facial droop and right-sided hemiplegia. Other medical problems include type 2 diabetes mellitus, hypertension, hyperlipidemia, chronic kidney disease, osteoarthritis and diabetic peripheral neuropathy. Other abnormalities include mild hypokalemia and hypomagnesemia. PLAN: Obviously to replenish her magnesium with 2 grams of IV magnesium sulfate. We will switch her to Cardene drip and transferred the patient to [facility] for MRI and further evaluation by the neurologist. BLADIMIR BATES MD DR: BOBBY/raul JOB#: [id number] / [id number]
[2020-08-26] MEDS ORDERED: ATORVASTATIN CALCIUM 20 MG TABLET PO SCH (21:00)
[2020-08-27 01:07] LABS: HEMOGLOBIN A1C 8.9 % (4.8-5.6)
--- NOTE | 2020-08-29 10:01 | DS ---
DATE OF DISCHARGE: 08/26/2020 HOSPITAL COURSE: The patient is a 60-year-old female patient, who was admitted through the Emergency Room with a complaint of severe headache, slurring of speech and weakness of the right upper and lower extremities. 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 Apparently, nobody has noticed any abnormality, although she herself said that she was weak and unsteady and used her cane. Because of weakness in the right side, she decided to come to the Emergency Room. The patient was, at least according to the record from the ER visit, stated that her deficit has resolved. She was alert, oriented x3 with normal motor and sensory function with no obvious focal deficit. However, when I saw her on next day, the patient was complaining of nausea. Her blood pressure was extremely high. She continued to have slurring of speech and right sided facial droop and right sided weakness and therefore, a decision was made to transfer her to [facility] to arrange for an MRI and to consult the neurologist. She did also was found to have hypokalemia, hypomagnesemia that were corrected. PHYSICAL EXAMINATION: GENERAL: On the day of discharge, she looked well and was clearly in no apparent respiratory distress. She was somewhat pale, but no jaundice, cyanosis or thyromegaly. No jugular venous distension. No limb edema. VITAL SIGNS: Her heart rate was 96, blood pressure was 101/97, temperature was 98.7, respiratory rate 20, and oxygen saturation was 93% on room air. HEAD, EYES, EARS, NOSE AND THROAT: Showed normocephalic, atraumatic. NECK: Supple. HEART: Normal first and second heart sounds. No gallop, rub or murmur. CHEST: Shows central trachea, equal bilateral chest expansion, air entry, vesicular sounds. No crepitation or rhonchi. ABDOMEN: Distended, soft, nontender. NEUROLOGIC: She was awake, alert. She had a slurred speech and right sided facial droop, but all other cranial nerves are intact. She definitely has right sided weakness. LABORATORY DATA: Her lab work on the day of discharge showed a white cell count of 11,100, hemoglobin 11.4, hematocrit 34.8, MCV 82 and platelet count 230,000. Her serum sodium was 142, potassium 3.4, chloride 106, bicarbonate 23, anion gap of 13, BUN 24, creatinine was 2.4, estimated GFR was 20 mL per minute. Her glucose was high at 229, calcium was 8. Total bilirubin, AST, ALT, alkaline phosphatase were normal. Her total protein was 5.9, albumin was 2.2. Her troponin was also slightly elevated at 0.089. Her prothrombin time, INR and aPTT were normal. FINAL DISCHARGE/TRANSFER DIAGNOSES: 1. Left hemispheric infarct with right sided hemiplegia and slurring of speech and right sided facial droop. Patient has multiple other medical problems including: A. Type 2 diabetes mellitus. B. Hypertension. C. Hyperlipidemia. D. Chronic kidney disease. E. Osteoarthritis. F. Diabetic peripheral neuropathy. G. Hypokalemia. H. Hypomagnesemia. BLADIMIR BATES MD DR: BOBBY/raul JOB#: [id number] / [id number]
== END 2020-08-26 13:10 | disposition short-term general hospital (02) | DRG 64 ==
LOC: ER 16:57 → 1 SOUTH 19:07
PROVIDERS: ADMIT Internal Medicine; ATTEND Internal Medicine
DX: I63.89 Other cerebral infarction (principal); E43 Unspecified severe protein-calorie malnutrition; Z68.1 Body mass index [BMI] 19.9 or less, adult; G81.91 Hemiplegia, unspecified affecting right dominant side; N17.9 Acute kidney failure, unspecified; I24.8 Other forms of acute ischemic heart disease; R47.81 Slurred speech; R29.810 Facial weakness; E11.22 Type 2 diabetes mellitus with diabetic chronic kidney disease; E11.319 Type 2 diabetes mellitus with unspecified diabetic retinopathy without macular edema; E11.42 Type 2 diabetes mellitus with diabetic polyneuropathy; E66.9 Obesity, unspecified; E78.00 Pure hypercholesterolemia, unspecified; E78.5 Hyperlipidemia, unspecified; E83.42 Hypomagnesemia; E87.6 Hypokalemia; I12.9 Hypertensive chronic kidney disease with stage 1 through stage 4 chronic kidney disease, or unspecified chronic kidney disease; I16.0 Hypertensive urgency; M15.9 Polyosteoarthritis, unspecified; N18.9 Chronic kidney disease, unspecified; Z79.4 Long term (current) use of insulin; Z79.899 Other long term (current) drug therapy; Z80.3 Family history of malignant neoplasm of breast; Z81.8 Family history of other mental and behavioral disorders; Z82.49 Family history of ischemic heart disease and other diseases of the circulatory system; Z83.3 Family history of diabetes mellitus; Z87.891 Personal history of nicotine dependence; Z91.013 Allergy to seafood; Z98.51 Tubal ligation status; Z90.49 Acquired absence of other specified parts of digestive tract; Z68.39 Body mass index [BMI] 39.0-39.9, adult
CPT/HCPCS: 36415; 70450; 71045; 80053; 80061; 80307; 81001; 82553; 82947; 83036; 83605; 83735; 84443; 84484; 85025; 85610; 85730; 93005; 96361; 96374; 96375; 99291; G0480; J0360; J2405; J3475; J3490; 97116; J7030

== ENCOUNTER 2021-04-15 12:33 | Emergency (ER) | payer BC ==
[~2021-04-15] VITALS: Ht 170.2 cm; Wt 106.7 kg
[~2021-04-15 12:33] MED LIST changes: +ATOR40TA59 PO; +GLIP-24 PO; +LISI1TAB23 PO
--- NOTE | 2021-04-15 13:33 | RAD ---
EXAMINATION: Right hip radiograph. VIEWS: 3 COMPARISON: None INDICATION:61 years, Female, fall. FINDINGS: No acute fracture, dislocation or subluxation. [id number] bilateral hips and sacroiliac joints osteoarthritis. No soft tissue swelling. IMPRESSION: No acute osseous process. Electronically signed by: Leonor Mccoy MD (04/15/2021 1:31 PM) [facility]
[2021-04-15] MEDS: HYDROcodone/APAP 5/325MG 1 TAB TABLET PO PRN (13:50)
--- NOTE | 2021-04-15 14:14 | PHYS DOC ---
Past History Past Medical History: Diabetes, High Cholesterol, Hypertension, Other Additional Past Medical Histor: kidney disease Past Surgical History: Cholecystectomy, , Other Additional Past Surgical Histo: D&C Smoking: Non-smoker Alcohol Use: None Drug Use: None General Adult EDM: Chief Complaint: MECHANICAL FALL HPI: HPI: Patient is a 61-year-old female who presents with right hip pain after a fall at home. Patient denies hitting her head or loss of consciousness. Denies being on blood thinners. Patient states "my legs get weak and I fall a lot". "I should use my cane more". patient is also reporting she has pain with urination is wanting to be treated for a UTI. Denies chest pain. Denies any acute weakness. Review of Systems: Review of Systems: ROS At least 10 ROS systems have been reviewed and are negative except as documented in the HPI. General: Negative except as outlined in HPI above. Skin: Negative except as outlined in HPI above. HEENT: Negative except as outlined in HPI above. Neck: Negative except as outlined in HPI above. Respiratory: Negative except as outlined in HPI above.. Cardiovascular: Negative except as outlined in HPI above. Abdomen: Negative except as outlined in HPI above. : Negative except as outlined in HPI above. Back/MSK: Negative except as outlined in HPI above. Neuro: Negative except as outlined in HPI above. Psych: Negative except as outlined in HPI above. Current Medications: Current Meds: Current Medications Medications (Trade) Dose Ordered Sig/Fernando Start Time Stop Time Status Last Admin Dose Admin Acetaminophen/ Hydrocodone Bitart (Lortab 5/325) 1 tab 1X PRN PRN 04/15/21 13:15 04/15/21 13:50 1 TAB Allergies: Allergies: Allergies Coded Allergies Type Severity Reaction Last Updated Verified shellfish derived Allergy Intermediate 08/25/20 Yes Physical Exam: PE: Constitutional: Well developed, well nourished, no acute distress, non-toxic appearance. [] HENT: Normocephalic, atraumatic, bilateral external ears normal, oropharynx moist, no oral exudates, nose normal. [] Eyes: PERRLA, EOMI, conjunctiva normal, no discharge. [] Neck: Normal range of motion, no tenderness, supple, no stridor. [] Cardiovascular:Heart rate regular rhythm, no murmur [] Lungs & Thorax: Bilateral breath sounds clear to auscultation [] Abdomen: Bowel sounds normal, soft, no tenderness, no masses, no pulsatile masses. [] Skin: Warm, dry, no erythema, no rash. [] Back: No tenderness, no CVA tenderness. [] Extremities: No tenderness, ROM intact, no edema, left hip pain. [] Neurologic: Alert and oriented X 3, normal motor function, normal sensory function, no focal deficits noted. [] Psychologic: Affect normal, judgement normal, mood normal. [] Current Patient Data: Vital Signs: Vital Signs Date Time Temp Pulse Resp B/P (MAP) Pulse Ox O2 Delivery O2 Flow Rate FiO2 04/15/21 13:53 97 04/15/21 12:36 98.6 76 20 204/88 (126) Room Air EKG: EKG: [] Radiology/Procedures: Radiology/Procedures: [] Heart Score: C/O Chest Pain: No Risk Factors: Risk Factors: DM, Current or recent (<one month) smoker, HTN, HLP, family history of CAD, obesity. Risk Scores: Score 0 - 3: 2.5% MACE over next 6 weeks - Discharge Home Score 4 - 6: 20.3% MACE over next 6 weeks - Admit for Clinical Observation Score 7 - 10: 72.7% MACE over next 6 weeks - Early Invasive Strategies Course & Med Decision Making: Course & Med Decision Making Pertinent Labs and Imaging studies reviewed. (See chart for details) [] 61-year-old female presents with right hip pain after a fall at home. Patien t has a history of falling and states that her legs just get weak and she does not use her cane as much as she should. Patient denies hitting her head or loss of consciousness. Patient is also reporting dysuria. UA ordered to rule out UTI. Right-sided, hip and pelvis x-ray ordered to rule out fracture. Hip and pelvis x-ray negative for fracture. Patient sent home with Macrobid to treat UTI. Patient also given Pyridium for discomfort. Patient's appreciative and okay with discharge plan. Kayla Disclaimer: Kayla Disclaimer: This electronic medical record was generated, in whole or in part, using a voice recognition dictation system. Departure Departure: Impression: Primary Impression: Acute cystitis Qualified Codes: N30.00 - Acute cystitis without hematuria Additional Impression: Fall Qualified Codes: W19.XXXA - Unspecified fall, initial encounter Disposition: HOME / SELF CARE / HOMELESS Condition: STABLE Referrals: PCP,NO (PCP) Patient Instructions: Urinary Tract Infection, [id number] Additional Instructions: EMERGENCY DEPARTMENT GENERAL DISCHARGE INSTRUCTIONS Thank you for coming to [facility] (ED) today and trusting us with you care. We trust that you had a positivie experience in our Emergency Department. If you wish to speak to the department management, you may call the director at [phone]. YOUR FOLLOW UP INSTRUCTIONS ARE FOLLOWS: 1. Do you have a private Doctor? If you do not have a private doctor, please ask for a resource list of physicians or clinics that may be able to assist you with follow up care. 2. The Emergency Physician has interpreted your x-rays. The X-Ray specialist will also review them. If there is a change in the findings, you will be notified in 48 hours when at all possible. 3. A lab test or culture has been done, your results will be reviewed and you will be notified if you need a change in treatment. ADDITIONAL INSTRUCTIONS AND INFORMATION: 1. Your care today has been supervised by a physician who is specially trained in emergency care. Many problems require more than one evaluation for a complete diagnosis and treatment. We recommend that you schedule your follow up appointment as recommended to ensure complete treatment of you illness or injury. If you are unable to obtain follow up care and continue to have a problem, or if your condition worsens, we recommend that you return to the ED. 2. We are not able to safely determine your condition over the phone nor are we able to give sound medical advice over the phone. For these safety reasons, if you call for medical advice we will ask you to come to the ED for further evaluation. 3. If you have any questions regarding these discharge instructions please call the ED at [phone]. SAFETY INFORMATION: In the interest of safety, wellness, and injury prevention; we encourage you to wear your sealbelt, if you smoke; quite smoking, and we encourage family to use a protective helmet for bicycling and other sporting events that present an increased risk for head injury. IF YOUR SYMPTOMS WORSEN OR NEW SYMPTOMS DEVELOP, OR YOU HAVE CONCERNS ABOUT YOUR CONDITION; OR IF YOUR CONDITION WORSENS WHILE YOU ARE WAITING FOR YOUR FOLLOW UP APPOINTMENT; EITHER CONTACT YOUR PRIMARY CARE DOCTOR, THE PHYSICIAN WHOSE NAME AND NUMBER YOU WERE GIVEN, OR RETURN TO THE ED IMMEDIATELY. Scripts Phenazopyridine Hcl (PYRIDIUM) 200 Mg Tablet 200 MG PO TID PRN PRN for PAIN for 2 Days, #2 TAB Prov: LINDA SANDOVAL APRN 04/15/21 Nitrofurantoin Monohyd/M-Cryst (MACROBID 100 MG CAPSULE) 100 Mg Capsule 100 CAP PO BID for UTI for 5 Days, #10 CAP Prov: LINDA SANDOVAL APRN 04/15/21 LINDA SANDOVAL APRN Apr 15, 2021 14:14
[2021-04-15 14:27] LABS: BACTERIA,URINE FEW /HPF (0-FEW); BILIRUBIN,URINE NEG (NEG); CLARITY,URINE CLEAR; COLOR,URINE YELLOW; GLUCOSE,URINE 250 mg/dL (NEG); NITRITE,URINE NEG (NEG); SQUAMOUS EPITHELIAL CELL,UR FEW /LPF; UROBILINOGEN,URINE 0.2 mg/dL (0.2 mg/dL)
[2021-04-15] MEDS ORDERED: PHEN-318 PO (15:14)
[2021-04-15] MEDS ORDERED: NITR100C62 PO (15:14)
[2021-04-15 15:23] VITALS: BP 161/77
[2021-04-15] MEDS: PHENAZOPYRIDINE 200 MG TABLET. PO ONE (15:37)
== END 2021-04-15 16:19 | disposition home or self-care (01) ==
LOC: ER 12:33
DX: N30.00 Acute cystitis without hematuria (principal); M25.551 Pain in right hip; E11.9 Type 2 diabetes mellitus without complications; E78.00 Pure hypercholesterolemia, unspecified; I10 Essential (primary) hypertension; Z91.013 Allergy to seafood; Z91.81 History of falling; W18.39XA Other fall on same level, initial encounter; Y93.89 Activity, other specified; Y92.89 Other specified places as the place of occurrence of the external cause; Y99.8 Other external cause status
CPT/HCPCS: 73502; 81001; 87086; 99285-25

== ENCOUNTER → 2021-04-30 | Outpatient (CLI) | payer OTHER ==
[2021-04-15 15:23] VITALS: BP 161/77
[~2021-04-30] MED LIST changes: +AMLO-187 PO; +ASPI-630 PO; +CYCL5TAB PO; +INSU100I17 SQ; +NITR100C62 PO; +PHEN-318 PO; +SEVE800T8 PO; +SODI650T PO
[2021-04-30 14:30] LABS: BASO # 0.2 x10^3/uL (0.0-0.2); BASO % 2 % (0-3); EOS # 0.5 x10^3/uL (0.0-0.7); EOS % 5 % (0-3); HEMOGLOBIN 9.6 g/dL (12.0-15.5); LYMPH % 20 % (24-48); MEAN CORPUSCULAR HEMOGLOBIN 28 pg (25-35); MEAN CORPUSCULAR HGB CONC 33 g/dL (31-37); MEAN CORPUSCULAR VOLUME 85 fL (79-100); MONO # 0.8 x10^3/uL (0.0-1.1); MONO % 8 % (0-9); NEUT # 6.4 x10^3uL (1.8-7.7); NEUT % 65 % (31-73); PLATELET COUNT 244 x10^3/uL (140-400); RED BLOOD COUNT 3.43 x10^6/uL (3.50-5.40); RED CELL DISTRIBUTION WIDTH 14.8 % (11.5-14.5); WHITE BLOOD COUNT 9.9 x10^3/uL (4.0-11.0)
[2021-04-30 14:33] LABS: ALBUMIN 2.3 g/dL (3.4-5.0); CALCIUM 8.1 mg/dL (8.5-10.1); CREATININE 6.5 mg/dL (0.6-1.0); GFR 6.5; PHOSPHORUS 5.3 mg/dL (2.6-4.7); POTASSIUM 4.2 mmol/L (3.5-5.1)
[2021-05-01 14:10] LABS: CALCIUM PTH 8.3 mg/dL (8.7-10.2); CREATININE PTH 6.38 mg/dL (0.57-1.00); PTH INTACT 247 pg/mL (15-65)
[2021-05-01 19:24] LABS: CREATININE,RANDOM URINE 241.8 mg/dL (Not Establ.)
== END ==
LOC: LAB 13:22
PROVIDERS: ATTEND Nurse Practitioner
DX: N18.6 End stage renal disease (principal); N39.0 Urinary tract infection, site not specified
CPT/HCPCS: 36415; 80069; 82570; 83970; 84156; 85025; 87086

== ENCOUNTER 2021-05-01 11:44 | Inpatient (IN) | payer OTHER ==
[~2021-05-01] VITALS: Ht 170.2 cm; Wt 103.8 kg
[~2021-05-01 11:44] MED LIST changes: -AMLO-187 PO; -ASPI-630 PO; -CYCL5TAB PO; -INSU100I17 SQ; -SEVE800T8 PO; -SODI650T PO
[2021-05-01 12:32] LABS: BASO # 0.2 x10^3/uL (0.0-0.2); BASO % 2 % (0-3); EOS # 0.5 x10^3/uL (0.0-0.7); EOS % 5 % (0-3); HEMATOCRIT 26.9 % (36.0-47.0); HEMOGLOBIN 8.9 g/dL (12.0-15.5); LYMPH % 23 % (24-48); MEAN CORPUSCULAR HEMOGLOBIN 28 pg (25-35); MEAN CORPUSCULAR HGB CONC 33 g/dL (31-37); MEAN CORPUSCULAR VOLUME 85 fL (79-100); MONO # 0.8 x10^3/uL (0.0-1.1); MONO % 9 % (0-9); NEUT # 5.3 x10^3uL (1.8-7.7); NEUT % 60 % (31-73); PLATELET COUNT 213 x10^3/uL (140-400); RED BLOOD COUNT 3.16 x10^6/uL (3.50-5.40); RED CELL DISTRIBUTION WIDTH 14.7 % (11.5-14.5); WHITE BLOOD COUNT 8.7 x10^3/uL (4.0-11.0)
[2021-05-01 12:38] LABS: CALCIUM 7.8 mg/dL (8.5-10.1); CREATININE 6.7 mg/dL (0.6-1.0); GFR 6.3; POTASSIUM 4.1 mmol/L (3.5-5.1)
[2021-05-01] MEDS ORDERED: IV NORMAL SALINE 1,000ML 1,000 ML IV ONE ×2 (12:45→17:00)
--- NOTE | 2021-05-01 12:45 | RAD ---
EXAM: Abdomen and pelvis CT without intravenous contrast. HISTORY: Acute on chronic renal disease. TECHNIQUE: Computed tomographic images of the abdomen and pelvis were obtained without contrast. Mult iplanar reformatting was performed. *One or more of the following individualized dose reduction techniques were utilized for this examina tion: 1. Automated exposure control. 2. Adjustment of the mA and/or kV according to patient size. 3. Use of iterative reconstruction technique. COMPARISON: None. FINDINGS: Evaluation of the lower thorax demonstrates linear scarring with benign calcification withi n the right middle lobe. There is also minimal scarring within the lingula. There is bilateral basila r atelectasis. There is no infiltrate or pleural effusion. No suspicious hepatic lesion is seen. There are hepatic and splenic granulomas. The gallbladder is mag[place] rgically absent. The pancreas, stomach and adrenal glands are unremarkable. There is mild bilateral renal atrophy and nonspecific bilateral perinephric stranding. There are conrado l vascular calcifications. There is no hydronephrosis or nephrolithiasis. There is a small ill-define d hypodense lesion within the anterior upper mid zone of the right kidney which may be due to a cyst. This is difficult to assess in the absence of contrast. There is no appendicitis. There is no bowel obstruction. There is distal colonic diverticulosis. Ther e is no convincing diverticulitis. There is aortic and aortic branch vessel atherosclerosis. There ar e prominent retroperitoneal lymph nodes. The bladder is empty. There is ovaries are unremarkable. The re is degenerative change involving the spine. There is no acute or suspicious osseous finding. IMPRESSION: 1. Mild bilateral renal atrophy, renal vascular calcifications and nonspecific bilateral perinephric stranding. There is no hydronephrosis or or ureterolithiasis. There may be a small right renal cyst. This can be assessed with a renal sonogram. 2. Colonic diverticulosis. 3. Prominent retroperitoneal lymph nodes. These are nonspecific and may be physiologic or reactive in etiology. These are not clearly pathologically enlarged. Electronically signed by: Erika Dahl MD (05/01/2021 12:43 PM) [id number]
[2021-05-01 12:46] LABS: ALBUMIN 2.1 g/dL (3.4-5.0); ALBUMIN/GLOBULIN RATIO 0.6 (1.0-1.7); MAGNESIUM 1.4 mg/dL (1.8-2.4); TOTAL BILIRUBIN 0.2 mg/dL (0.2-1.0); TOTAL PROTEIN 5.4 g/dL (6.4-8.2)
--- NOTE | 2021-05-01 12:51 | PHYS DOC ---
Past History Past Medical History: Diabetes, High Cholesterol, Hypertension, Other Additional Past Medical Histor: kidney disease Past Surgical History: Cholecystectomy, , Other Additional Past Surgical Histo: D&C, AV SHUNT LEFT ARM Smoking: Non-smoker Alcohol Use: None Drug Use: None General Adult EDM: Chief Complaint: ABNORMAL LABS HPI: HPI: 61-year-old female past medical history of diabetes, hypertension, hyperlipidemia and CKD, presents to the ED, sent in after abnormal labs were drawn yesterday by patient's inspector and mender. Patient with no active complaints in the emergency department. Denies any recent flulike illness, vomiting or diarrhea. No known history of Covid and has been vaccinated for Covid. Review of Systems: Review of Systems: Constitutional: Denies fever or chills Eyes: Denies change in visual acuity HENT: Denies nasal congestion or sore throat Respiratory: Denies cough or shortness of breath Cardiovascular: Denies chest pain or edema GI: Denies abdominal pain, nausea, vomiting, bloody stools or diarrhea : Denies dysuria, hematuria or increased urinary frequency urgency Musculoskeletal: Denies back pain or joint pain Integument: Denies rash or diaphoresis Neurologic: Denies headache, focal weakness or sensory changes Endocrine: Denies polyuria or polydipsia Lymphatic: Denies swollen glands Psychiatric: Denies depression or anxiety Current Medications: Current Meds: Current Medications Medications (Trade) Dose Ordered Sig/Fernando Start Time Stop Time Status Last Admin Dose Admin Sodium Chloride 1,000 ml @ 1,000 mls/hr 1X ONCE 05/01/21 12:45 05/01/21 13:44 Allergies: Allergies: Allergies Coded Allergies Type Severity Reaction Last Updated Verified shellfish derived Allergy Intermediate 08/25/20 Yes Physical Exam: PE: Constitutional: Well developed, well nourished, no acute distress, non-toxic appearance. HENT: Normocephalic, atraumatic, Eyes: EOMI, conjunctiva normal, no discharge. Neck: Normal range of motion, supple, Cardiovascular: S1/2 present, regular rhythm Lungs & Thorax: Speaking in full sentences, bilateral equal chest rise, no tachypnea or increased work of breathing Abdomen: soft, no tenderness, obese - states "my abdomen feels bloated"-denies constipation Skin: Warm, dry, no erythema, no rash. [] Extremities: No tenderness, no cyanosis, Neurologic: Alert and oriented X 3, normal motor function, normal sensory function, no focal deficits noted. [] Psychologic: Affect normal, judgement normal, mood normal. [] Current Patient Data: Labs: Laboratory Tests Test 05/01/21 12:19 White Blood Count 8.7 x10^3/uL (4.0-11.0) Red Blood Count 3.16 x10^6/uL (3.50-5.40) L Hemoglobin 8.9 g/dL (12.0-15.5) L Hematocrit 26.9 % (36.0-47.0) L Mean Corpuscular Volume 85 fL (79-100) Mean Corpuscular Hemoglobin 28 pg (25-35) Mean Corpuscular Hemoglobin Concent 33 g/dL (31-37) Red Cell Distribution Width 14.7 % (11.5-14.5) H Platelet Count 213 x10^3/uL (140-400) Neutrophils (%) (Auto) 60 % (31-73) Lymphocytes (%) (Auto) 23 % (24-48) L Monocytes (%) (Auto) 9 % (0-9) Eosinophils (%) (Auto) 5 % (0-3) H Basophils (%) (Auto) 2 % (0-3) Neutrophils # (Auto) 5.3 x10^3uL (1.8-7.7) Lymphocytes # (Auto) 2.0 x10^3/uL (1.0-4.8) Monocytes # (Auto) 0.8 x10^3/uL (0.0-1.1) Eosinophils # (Auto) 0.5 x10^3/uL (0.0-0.7) Basophils # (Auto) 0.2 x10^3/uL (0.0-0.2) Sodium Level 138 mmol/L (136-145) Potassium Level 4.1 mmol/L (3.5-5.1) Chloride Level 104 mmol/L (98-107) Carbon Dioxide Level 23 mmol/L (21-32) Anion Gap 11 (6-14) Blood Urea Nitrogen 49 mg/dL (7-20) H Creatinine 6.7 mg/dL (0.6-1.0) H Estimated GFR (Cockcroft-Gault) 6.3 BUN/Creatinine Ratio 7 (6-20) Glucose Level 101 mg/dL (70-99) H Calcium Level 7.8 mg/dL (8.5-10.1) L Phosphorus Level 5.0 mg/dL (2.6-4.7) H Magnesium Level 1.4 mg/dL (1.8-2.4) L Total Bilirubin 0.2 mg/dL (0.2-1.0) Aspartate Amino Transferase (AST) 14 U/L (15-37) L Alanine Aminotransferase (ALT) 17 U/L (14-59) Alkaline Phosphatase 84 U/L (46-116) Total Protein 5.4 g/dL (6.4-8.2) L Albumin 2.1 g/dL (3.4-5.0) L Albumin/Globulin Ratio 0.6 (1.0-1.7) L Vital Signs: Vital Signs Date Time Temp Pulse Resp B/P (MAP) Pulse Ox O2 Delivery O2 Flow Rate FiO2 05/01/21 11:56 97.3 66 16 166/74 (104) 98 Room Air EKG: EKG: [] Radiology/Procedures: Radiology/Procedures: IMAGING REPORT Signed PATIENT: JESUSITA PADILLA ACCOUNT: [id number] : 1960 LOCATION: ER AGE: 61 SEX: F EXAM STATUS: REG ER ORD. PHYSICIAN: BRII REED DO REASON: acute on ckd PROCEDURE: CT ABDOMEN PELVIS WO CONTRAST EXAM: Abdomen and pelvis CT without intravenous contrast. HISTORY: Acute on chronic renal disease. TECHNIQUE: Computed tomographic images of the abdomen and pelvis were obtained without contrast. Multiplanar reformatting was performed. *One or more of the following individualized dose reduction techniques were utilized for this examination: 1. Automated exposure control. 2. Adjustment of the mA and/or kV according to patient size. 3. Use of iterative reconstruction technique. COMPARISON: None. FINDINGS: Evaluation of the lower thorax demonstrates linear scarring with benign calcification within the right middle lobe. There is also minimal scarring within the lingula. There is bilateral basilar atelectasis. There is no infiltrate or pleural effusion. No suspicious hepatic lesion is seen. There are hepatic and splenic granulomas. The gallbladder is surgically absent. The pancreas, stomach and adrenal glands are unremarkable. There is mild bilateral renal atrophy and nonspecific bilateral perinephric stranding. There are renal vascular calcifications. There is no hydronephrosis or nephrolithiasis. There is a small ill-defined hypodense lesion within the anterior upper mid zone of the right kidney which may be due to a cyst. This is difficult to assess in the absence of contrast. There is no appendicitis. There is no bowel obstruction. There is distal colonic diverticulosis. There is no convincing diverticulitis. There is aortic and aortic branch vessel atherosclerosis. There are prominent retroperitoneal lymph nodes. The bladder is empty. There is ovaries are unremarkable. There is degenerative change involving the spine. There is no acute or suspicious osseous finding. IMPRESSION: 1. Mild bilateral renal atrophy, renal vascular calcifications and nonspecific bilateral perinephric stranding. There is no hydronephrosis or or ureterolithiasis. There may be a small right renal cyst. This can be assessed with a renal sonogram. 2. Colonic diverticulosis. 3. Prominent retroperitoneal lymph nodes. These are nonspecific and may be physiologic or reactive in etiology. These are not clearly pathologically enlarged. Electronically signed by: Erika Roa MD (05/01/2021 12:43 PM) [id number] DICTATED AND SIGNED BY: ERIKA ROA MD DATE: 05/01/21 1239 CC: MATTHEW ZABALA; BRII REED DO ~MTH0 0 Heart Score: C/O Chest Pain: No Risk Factors: Risk Factors: DM, Current or recent (<one month) smoker, HTN, HLP, family history of CAD, obesity. Risk Scores: Score 0 - 3: 2.5% MACE over next 6 weeks - Discharge Home Score 4 - 6: 20.3% MACE over next 6 weeks - Admit for Clinical Observation Score 7 - 10: 72.7% MACE over next 6 weeks - Early Invasive Strategies Course & Med Decision Making: Course & Med Decision Making Pertinent Labs and Imaging studies reviewed. (See chart for details) Labs show chronic, worsening normocytic anemia and acute on chronic kidney disease. Patient asymptomatic. Reports she follows with "nephrology consultants, JONATAN" and a nurse (Barrett) from her nephrology clinic, called her today/told her to come to the emergency department. Patient with no history of heart failure, is not on any diuretics and makes urine. CT imaging with no hydrocephaly or obvious obstruction. Patient started on NS bolus and maintenance fluids. Normal potassium. Will transfer to [facility] for nephrology consultation and admit to medicine for further medical management. Patient stable at time of transfer and agrees with this plan. I have spoken with the patient and/or caregivers. I have explained the patient's condition, diagnosis and treatment plan based on the information available to me at this time. I have answered the patient's and/or caregivers questions and answered any concerns. The patient and/or caregivers have as good an understanding of the patient's diagnosis, condition and treatment plan as can be expected at this point. The patient has been stabilized within the capability of the emergency department. The patient will be transported for further care and management or will be moved to an observation or inpatient service. I have communicated with the staff or medical practitioner taking over this patient's care. Kayla Disclaimer: Kayla Disclaimer: This electronic medical record was generated, in whole or in part, using a voice recognition dictation system. Departure Departure: Impression: Primary Impression: Acute renal failure superimposed on chronic kidney disease Additional Impression: Normocytic anemia Disposition: [address] [place] [address] [facility] (to [facility], accepted by Dr. Herrera) Admitting Physician: Other (Dr. Herrera) Condition: STABLE Referrals: MATTHEW ZABALA (PCP) BRII REED DO May 01, 2021 12:51
[2021-05-02] MEDS ORDERED: IV RINGERS SOLUTION,LACTATED 1,000 ML IV ONE (00:30)
[2021-05-02 01:01] LABS: BACTERIA,URINE FEW /HPF (0-FEW); BILIRUBIN,URINE NEG (NEG); CLARITY,URINE HAZY; COLOR,URINE YELLOW; GLUCOSE,URINE 100 mg/dL (NEG); NITRITE,URINE NEG (NEG); RBC,URINE OCC /HPF (0-2); UROBILINOGEN,URINE 0.2 mg/dL (0.2 mg/dL); WBC,URINE >40 /HPF (0-4)
[2021-05-02 01:02] LABS: SQUAMOUS EPITHELIAL CELL,UR FEW /LPF
[2021-05-02 01:19] LABS: CALCIUM 7.8 mg/dL (8.5-10.1); CREATININE 6.2 mg/dL (0.6-1.0); GFR 6.9
[2021-05-02] MEDS ORDERED: MAGNESIUM OXIDE 400 MG TABLET PO ONE (02:00)
[2021-05-02] MEDS ORDERED: IV NORMAL SALINE 50ML 50 ML ONE (02:10)
[2021-05-02] MEDS ORDERED: cefTRIAXone SODIUM 1 GM VIAL ONE (02:10)
[2021-05-02] MEDS ORDERED: LABETALOL 20 MG/4 ML DISP.SYRIN. IVP ONE (05:30)
[2021-05-02] MEDS ORDERED: IV NORMAL SALINE 1,000ML 1,000 ML IV ONE (12:30)
[2021-05-02] MEDS ORDERED: INSU100I17 SQ (12:44)
[2021-05-02] MEDS ORDERED: INSU100I13 SQ ×2 (12:44)
[2021-05-02] MEDS ORDERED: ASPI-630 PO (12:44)
[2021-05-02] MEDS ORDERED: CYCL5TAB PO (12:44)
[2021-05-02] MEDS ORDERED: SEVE800T8 PO (12:44)
[2021-05-02] MEDS ORDERED: AMLO-187 PO (12:44)
[2021-05-02] MEDS ORDERED: SODI650T PO (12:44)
[2021-05-02 14:03] LABS: CALCIUM 7.6 mg/dL (8.5-10.1); GFR 7.2; POTASSIUM 4.2 mmol/L (3.5-5.1)
[2021-05-02 17:52] VITALS: BP 202/119
[2021-05-02] MEDS ORDERED: CYCLOBENZAPRINE 10 MG TABLET. PO PRN (18:15)
[2021-05-02] MEDS: ASPIRIN CHEWABLE 81 MG TABLET. PO SCH (18:23)
[2021-05-02] MEDS: CITALOPRAM 20 MG TABLET. PO SCH (18:24)
[2021-05-02] MEDS: amLODIPine BESYLATE 10 MG TABLET PO SCH (18:24)
[2021-05-02] MEDS: INSULIN LISPRO 300 UNITS/3 ML VIAL. SQ SCH (18:30)
[2021-05-02] MEDS: SEVELAMER CARBONATE 800 MG TABLET. PO SCH (18:30)
--- NOTE | 2021-05-02 19:28 | HP ---
ADMIT DATE: 05/02/2021 HISTORY OF PRESENT ILLNESS: The patient is a 61-year-old female patient who has had lab work done at her tare man's office and was told to come to the Emergency Room for further evaluation. The patient herself does not have any complaint, in particular, she has denied any nausea or vomiting. Denied any shortness of breath. Denied any itching or any uremic symptoms. She has been vaccinated for COVID and apparently her lab work showed that her creatinine has dramatically risen to 6.7 and BUN of 49, transpired that her creatinine was 2.4 on 08/26/2020 and has been steadily up since then. I do not have anything to compare with. She was seen in the Emergency Room, was given IV fluid and her creatinine came down from 6.7 to 6. She has had a CT scan of the abdomen, which basically showed that she has mild bilateral renal atrophy with renal vascular calcification, and nonspecific bilateral perinephric stranding. There is no hydronephrosis or ureterolithiasis, maybe a small right renal cyst, colonic diverticulosis and prominent retroperitoneal lymph nodes that are nonspecific and may be physiological reactive in etiology. These are not clearly pathologically enlarged. The patient has not been accepted at [facility] and therefore, she was admitted to [facility]. We will contact the tare man tomorrow. Again, when I asked her on arrival to the hospital, she has no uremic symptoms; however, her blood pressure was high; however, she has not received any of her medications that she is on at home. PAST MEDICAL HISTORY: Significant for type 2 diabetes mellitus which was diagnosed in 2002, hypertension, hyperlipidemia, chronic kidney disease. 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 She has also generalized osteoarthritis. PAST SURGICAL HISTORY: Left upper arm arteriovenous fistula creation, 4 C-sections and cholecystectomy. ALLERGIES: SHE IS ALLERGIC TO SHELLFISH DERIVATIVE. MEDICATIONS: She is currently on the following medication: She is on cyclobenzaprine 5 mg 3 times a day, atorvastatin 40 mg at bedtime, metoprolol tartrate 50 mg twice a day, amlodipine besylate 10 mg daily, aspirin 81 mg once a day, gabapentin 300 mg 3 times a day. She is also on citalopram hydrobromide 20 mg daily, sevelamer 800 mg 3 tablets 3 times a day with meals, sodium bicarbonate 650 mg twice a day. She is on NovoLog insulin 6 units before meals and Lantus insulin 10 units daily and Lantus insulin 20 units at bedtime. REVIEW OF SYSTEMS: As per history of present illness. FAMILY HISTORY: She has one sister who is younger and has congenital heart disease. Father in his 70s. Mother at age of 47 because of breast cancer. SOCIAL HISTORY: She is , has 3 sons and 1 daughter. She quit smoking in 1984. She continued to drink alcohol occasionally. Does not use any drugs. She is on disability. PHYSICAL EXAMINATION: GENERAL: On arrival to the Emergency Room, the patient looked well and was clearly in no apparent respiratory distress. She was pale, no jaundice, cyanosis, no lymphadenopathy, no thyromegaly, no jugular venous distention. No limb edema. VITAL SIGNS: Her heart rate was 66, blood pressure is 166/74, temperature was 97.3, respiratory rate was 16 and oxygen saturation was 98%. HEAD, EYES, EARS, NOSE, AND THROAT: Normocephalic, atraumatic. NECK: Supple. HEART: Showed normal first and second heart sounds, no gallop or murmur. CHEST: Shows central trachea, equal bilateral chest expansion, air entry, vesicular breath sounds. No crepitation or rhonchi. ABDOMEN: Distended, soft, nontender. NEUROLOGIC: She is awake, alert, responding appropriately. All cranial nerves intact. She moves extremities without difficulty. She has arteriovenous fistula in the left arm, which is functioning. LABORATORY DATA: Her lab on arrival showed a white cell count of 8700, hemoglobin 9, hematocrit 27, MCV 85, and a platelet count of 213 with normal manual differential. Her chemistry on arrival showed a serum sodium 138, potassium 4.1, chloride 104, bicarbonate 23, anion gap of 11, BUN 49, creatinine 6.7. Estimated GFR was 6.3 mL per minute. Her glucose 101, calcium was 7.8, phosphorus 5, magnesium was 1.4. Total bilirubin, AST, ALT, alkaline phosphatase were normal. Total protein was 5.4, albumin 3.1. Urinalysis showed the urine was yellow, hazy with a pH of 7, specific gravity of 1.020. There was a small amount of protein, small amount of glucose, negative for ketones, trace of blood, negative for nitrite, trace leukocyte esterase, occasional rbc's, more than 40 wbc's and her coronavirus by rapid testing was negative. His CT scan of the abdomen and pelvis showed that the patient has mild bilateral renal atrophy with renal vascular calcification, nonspecific bilateral perinephric stranding. ASSESSMENT AND PLAN: In summary, this is a patient with probably end-stage renal disease. We will continue all her medications ___ going to make any difference given that her creatinine has been high for a while now. I will contact her tare man tomorrow and she might need to go to [facility] or [facility] to start hemodialysis. ROSA DR: Mayra TID: [id number]
[2021-05-02] MEDS: GABAPENTIN 300 MG CAPSULE. PO SCH (19:45)
[2021-05-02] MEDS: MAGNESIUM OXIDE 400 MG TABLET PO SCH (19:45)
[2021-05-02] MEDS: ATORVASTATIN CALCIUM 20 MG TABLET PO SCH (19:46)
[2021-05-02] MEDS: METOPROLOL TART IMMED RELEASE 25 MG TABLET. PO SCH (19:46)
[2021-05-02] MEDS: INSULIN GLARGINE SYRINGE. SQ SCH (20:38)
[2021-05-02 21:33] VITALS: BP 169/71
[2021-05-02 23:00] VITALS: BP_SYST 122; BP_SYST 169; BP_DIAS 71; BP_DIAS 72
[2021-05-03 05:00] VITALS: BP 189/65
[2021-05-03] MEDS: amLODIPine BESYLATE 10 MG TABLET PO SCH (06:08)
[2021-05-03] MEDS: METOPROLOL TART IMMED RELEASE 25 MG TABLET. PO SCH ×2 (06:09→21:01)
[2021-05-03] MEDS: INSULIN LISPRO 300 UNITS/3 ML VIAL. SQ SCH ×3 (07:30→17:25)
[2021-05-03] MEDS: SEVELAMER CARBONATE 800 MG TABLET. PO SCH ×3 (07:30→17:06)
[2021-05-03 08:00] LABS: CALCIUM 7.9 mg/dL (8.5-10.1); CREATININE 5.7 mg/dL (0.6-1.0); GFR 7.6; POTASSIUM 4.5 mmol/L (3.5-5.1)
[2021-05-03] MEDS: ASPIRIN CHEWABLE 81 MG TABLET. PO SCH (08:33)
[2021-05-03] MEDS: CITALOPRAM 20 MG TABLET. PO SCH (08:33)
[2021-05-03] MEDS: GABAPENTIN 300 MG CAPSULE. PO SCH ×3 (08:33→21:01)
[2021-05-03] MEDS: MAGNESIUM OXIDE 400 MG TABLET PO SCH ×3 (08:33→21:01)
[2021-05-03 08:53] VITALS: BP 158/80
[2021-05-03] MEDS: INSULIN GLARGINE SYRINGE. SQ SCH ×2 (09:39→21:00)
[2021-05-03 11:27] VITALS: BP 148/84
[2021-05-03] MEDS ORDERED: IV NORMAL SALINE 1,000ML 1,000 ML IV SCH (11:45)
[2021-05-03 15:25] VITALS: BP 165/77
[2021-05-03 19:20] VITALS: BP 183/77
[2021-05-03] MEDS: ATORVASTATIN CALCIUM 20 MG TABLET PO SCH (21:01)
--- NOTE | 2021-05-03 21:17 | PN ---
DATE: 05/03/2021 SUBJECTIVE: The patient was brought to the Emergency Room with abnormal lab work. Her creatinine has dramatically risen to 6.7, was treated with IV fluid and was admitted for further evaluation. CT scan showed no evidence of obstruction. She is not on any nephrotoxic medication, not have any nausea or vomiting. In fact, she was asymptomatic. Her creatinine has come down slightly from 6.7-5.7 and I spoke with the gunner mate cardiology nurse practitioner for the [facility] team. She recommended to continue with IV fluid today, to call her with there is a nurse practitioner by the name of Cindy Pierre tomorrow after obtaining her lab work tomorrow morning and if there is no improvement, she probably needs to be transferred to a facility where she can be started on dialysis if there is further improvement, she can be discharged home to follow with their group as an outpatient. PHYSICAL EXAMINATION: GENERAL: When I saw her this afternoon, she looked well and was clearly in no apparent respiratory distress. She is pale, but no jaundice, cyanosis or thyromegaly. No jugular venous distention. No limb edema. VITAL SIGNS: Her heart rate was 66, blood pressure was 148/84, temperature was 97.9, respiratory rate was 18 and oxygen saturation was 97% on room air. HEAD, EYES, EARS, NOSE, AND THROAT: Normocephalic, atraumatic. NECK: Supple. HEART: Normal first and second heart sounds, no gallop, rub or murmur. CHEST: Clear to auscultation, no crepitation or rhonchi. ABDOMEN: Distended, soft, nontender. NEUROLOGIC: She is awake, alert, responding appropriately. All cranial nerves intact. She does have mild residual right sided weakness. She has an AV fistula that is mature on the left arm. Her intake was 2550, no output was recorded. LABORATORY DATA: This morning showed a serum sodium 137, potassium 4.5, chloride 108, bicarbonate 21, anion gap of 8, BUN 46, creatinine 5.7. Estimated GFR was 7.6. Glucose was 84 and calcium was 7.9. ASSESSMENT: Acute on chronic kidney injury, slowly responding. 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 PLAN: To continue with IV fluid. Continue with all her other medication. I will repeat her lab work tomorrow morning and we will contact her gunner mate again tomorrow to decide whether she needs to go to a facility, which can be dialyzed and/or she can be discharged home to follow as an outpatient with their office. LANDON DR: Mayra TID: [id number]
[2021-05-03 23:11] VITALS: BP 179/74
[2021-05-04 05:47] VITALS: BP 172/90
[2021-05-04 06:17] LABS: CALCIUM 8.2 mg/dL (8.5-10.1); CREATININE 5.7 mg/dL (0.6-1.0); GFR 7.6; POTASSIUM 4.3 mmol/L (3.5-5.1)
[2021-05-04] MEDS: INSULIN LISPRO 300 UNITS/3 ML VIAL. SQ SCH ×2 (07:30→12:23)
[2021-05-04] MEDS: GABAPENTIN 300 MG CAPSULE. PO SCH ×2 (08:23→14:36)
[2021-05-04] MEDS: MAGNESIUM OXIDE 400 MG TABLET PO SCH ×2 (08:23→14:00)
[2021-05-04] MEDS: CITALOPRAM 20 MG TABLET. PO SCH (08:24)
[2021-05-04] MEDS: amLODIPine BESYLATE 10 MG TABLET PO SCH (08:24)
[2021-05-04] MEDS: ASPIRIN CHEWABLE 81 MG TABLET. PO SCH (08:25)
[2021-05-04] MEDS: METOPROLOL TART IMMED RELEASE 25 MG TABLET. PO SCH (08:25)
[2021-05-04] MEDS: SEVELAMER CARBONATE 800 MG TABLET. PO SCH ×2 (08:26→12:31)
[2021-05-04 11:00] VITALS: BP 174/81
[2021-05-04] MEDS: INSULIN GLARGINE SYRINGE. SQ SCH ×2 (12:21→12:30)
--- NOTE | 2021-05-05 03:52 | DS ---
DATE OF DISCHARGE: 05/04/2021 HOSPITAL COURSE: The patient is a 61-year-old female patient who was sent to our Emergency Room by her primary care physician after her lab work were noted to be abnormal, in particular, her creatinine has dramatically risen to 6.7. She was treated aggressively with IV fluid, her creatinine came down from 6.7 to 5.7 and plateaued there. Apparently, she was followed by the [facility] team. However, because she lives here in [place], they wanted her to be transferred to [facility] including Dr. Keating, Dr. Hastings, Dr. Moore and Dr. Sargent. She herself is asymptomatic in that she has no uremic symptoms. Her blood pressure is slightly high, but otherwise she is stable. Her GFR is only 6.7 and she has a mature arteriovenous fistula. I did speak with Dr. Tyler Keating and we fax it to their office ____ with the plan is for the social work msw to contact her to start hemodialysis at [facility] in [facility]. PHYSICAL EXAMINATION: GENERAL: When I saw her this afternoon, she looked well and was clearly in no apparent respiratory distress. She was pale. No jaundice, cyanosis or thyromegaly. No jugular venous distention. No limb edema. VITAL SIGNS: Her heart rate was 64, blood pressure was 174/81, temperature was 98, respiratory rate was 18 and oxygen saturation was 99%. HEAD, EYES, EARS, NOSE AND THROAT: Normocephalic, atraumatic. NECK: Supple. HEART: Showed normal first and second heart sounds. No gallop, rub or murmur. CHEST: Clear to auscultation. No crepitation or rhonchi. ABDOMEN: Distended, soft, nontender. NEUROLOGIC: She was awake, alert, responding appropriately. All cranial nerves intact. She has mild residual right-sided hemiparesis. Her intake over the last 24 hours and output incompletely recorded. LABORATORY DATA: This morning showed a serum sodium 136, potassium 4.3, chloride 106, bicarbonate 20, anion gap of 10, BUN 48, creatinine 5.7. Estimated GFR was 7.6, glucose was 96 and calcium was 8.2. Her white cell count was 8700, hemoglobin 9, hematocrit 27, MCV 85 and platelet count 213,000 with normal manual differential. Her coronavirus by PCR was negative. DISCHARGE MEDICATIONS: She was discharged home to continue on amlodipine 10 mg once a day, aspirin 81 mg once a day, atorvastatin 40 mg at bedtime, citalopram hydrobromide 20 mg daily, cyclobenzaprine 5 mg 3 times a day, gabapentin 300 mg 3 times a day, NovoLog insulin 6 units before meals and Lantus insulin 10 units daily and 20 units at bedtime, metoprolol 50 mg twice a day, Renagel 800 mg tablet, she takes 3 times a day with meals and sodium bicarbonate 650 mg twice a day. FINAL DISCHARGE DIAGNOSES: End-stage renal disease, will require hemodialysis soon. She has a mature arteriovenous fistula in the left arm. Other medical problems include type 2 diabetes mellitus, hypertension, hyperlipidemia, left middle cerebral artery territory infarct with mild residual right-sided hemiparesis, generalized osteoarthritis. LEONARD DR: Mayra TID: [id number]
== END 2021-05-04 15:20 | disposition home or self-care (01) | DRG 683 ==
LOC: ER 11:44 → 1 SOUTH 05-02 15:37
PROVIDERS: ADMIT Internal Medicine; ATTEND Internal Medicine
DX: N17.9 Acute kidney failure, unspecified (principal); I12.0 Hypertensive chronic kidney disease with stage 5 chronic kidney disease or end stage renal disease; I69.351 Hemiplegia and hemiparesis following cerebral infarction affecting right dominant side; D64.9 Anemia, unspecified; E11.22 Type 2 diabetes mellitus with diabetic chronic kidney disease; E78.00 Pure hypercholesterolemia, unspecified; E78.5 Hyperlipidemia, unspecified; K57.30 Diverticulosis of large intestine without perforation or abscess without bleeding; M15.9 Polyosteoarthritis, unspecified; N18.6 End stage renal disease; Z80.3 Family history of malignant neoplasm of breast; Z87.891 Personal history of nicotine dependence; Z20.822 Contact with and (suspected) exposure to COVID-19; Z90.49 Acquired absence of other specified parts of digestive tract; Z91.013 Allergy to seafood
CPT/HCPCS: 36415; 74176; 80048; 80053; 81001; 82947; 83735; 84100; 85025; 87086; 87426; J0696; J1815; J3490; J7120; U0003; 99285-25; J7030

== ENCOUNTER → 2021-05-07 | Outpatient (CLI) | payer OTHER ==
[2021-05-04 11:00] VITALS: BP 174/81
[~2021-05-07] MED LIST changes: +AMLO-187 PO; +ASPI-630 PO; +CYCL5TAB PO; +INSU100I17 SQ; +SEVE800T8 PO; +SODI650T PO
[2021-05-07 14:37] LABS: BILIRUBIN,URINE NEG (NEG); CLARITY,URINE HAZY; COLOR,URINE YELLOW; GLUCOSE,URINE 100 mg/dL (NEG)
[2021-05-07 14:38] LABS: NITRITE,URINE NEG (NEG); RBC,URINE 0 /HPF (0-2); UROBILINOGEN,URINE 0.2 mg/dL (0.2 mg/dL)
[2021-05-07 14:39] LABS: BACTERIA,URINE FEW /HPF (0-FEW); SQUAMOUS EPITHELIAL CELL,UR MANY /LPF; YEAST,URINE PRESENT /HPF
--- NOTE | 2021-05-07 16:28 | RAD ---
EXAMINATION: XR CHEST 2V CLINICAL HISTORY: END STAGE RENAL DISEASE START HEMODIALYSIS, chest pain EXAM DATE/TIME: 05/07/2021 1:45 PM COMPARISON: 08/25/2020 FINDINGS: Lines, Tubes, and Devices: None. Cardiomediastinal Silhouette: Heart size at upper limits of normal. Aortic atherosclerotic calcificat ion. Lungs and Pleura: No evidence of focal airspace consolidation or pleural effusion. Pulmonary vasculat ure unremarkable. Bones and Soft Tissues: Degenerative changes in the thoracic spine. Upper abdominal surgical clips. IMPRESSION: No evidence of acute cardiopulmonary abnormality or significant interval change. Electronically signed by: Vasquez Rivera DO (05/07/2021 4:25 PM) KAI
== END ==
LOC: LAB 13:14
PROVIDERS: ATTEND Nurse Practitioner
DX: I70.0 Atherosclerosis of aorta (principal); N18.6 End stage renal disease; N39.41 Urge incontinence; M47.814 Spondylosis without myelopathy or radiculopathy, thoracic region
CPT/HCPCS: 71046; 81001; 86704; 86706; 87086; 87340

== ENCOUNTER → 2021-05-11 | Outpatient (CLI) | payer OTHER ==
[2021-05-04 11:00] VITALS: BP 174/81
[2021-05-11 16:05] LABS: HEMATOCRIT 28.2 % (36.0-47.0); HEMOGLOBIN 9.4 g/dL (12.0-15.5)
[2021-05-11 16:13] LABS: ALBUMIN 2.2 g/dL (3.4-5.0); CALCIUM 8.4 mg/dL (8.5-10.1); CREATININE 6.3 mg/dL (0.6-1.0); GFR 6.8; MAGNESIUM 1.9 mg/dL (1.8-2.4); PHOSPHORUS 4.5 mg/dL (2.6-4.7); POTASSIUM 4.4 mmol/L (3.5-5.1)
[2021-05-12 01:07] LABS: CALCIUM PTH 8.5 mg/dL (8.7-10.2); CREATININE PTH 6.18 mg/dL (0.57-1.00); PTH INTACT 192 pg/mL (15-65)
== END ==
LOC: LAB 15:02
PROVIDERS: ATTEND Internal Medicine Nephrology
DX: N18.5 Chronic kidney disease, stage 5 (principal)
CPT/HCPCS: 36415; 80069; 82306; 82728; 83540; 83550; 83735; 83970; 85014; 85018

== ENCOUNTER 2021-11-23 19:47 | Emergency (ER) | payer OTHER ==
[~2021-11-23] VITALS: Ht 170.2 cm; Wt 103.8 kg
[2021-11-23 19:47] VITALS: BP 236/99
[~2021-11-23 19:47] MED LIST changes: -LISI1TAB20 PO; -LISI1TAB23 PO; +LISI1TAB35 PO; +LISI1TAB39 PO; -MOME17SP NS; +MOME17SP5 NS
[2021-11-23] MEDS ORDERED: MORPHINE SULFATE 4 MG/ML DISP.SYRIN. IM ONE (20:15)
--- NOTE | 2021-11-23 20:56 | RAD ---
Single view chest dated 11/23/2021 8:54 PM: COMPARISON: 05/07/2021 Clinical Indication: Shoulder pain. Findings: Single upright portable exam of the chest was performed. Heart size and mediastinal contours are with in normal limits. Lungs are clear. No consolidation or pleural effusion. No pneumothorax. IMPRESSION: No acute radiographic abnormality. Electronically signed by: Jack Lucas MD (11/23/2021 8:54 PM) BARBARA
--- NOTE | 2021-11-23 21:13 | RAD ---
Right shoulder 3 views: Reason for examination: Fell with injury to right shoulder and upper extremity. The right scapula and clavicle appears to be intact. The proximal humerus appears to be intact but sh ows hypertrophic changes at the humeral head and irregularity at the greater tuberosity which probabl y reflects degenerative change. There is also marked widening of the acromiohumeral joint space with the humeral head appearing to be subluxed inferiorly but still located at the glenoid. IMPRESSION: Widening of the acromiohumeral joint space at the humeral head still appears to be located at the gle noid. Degenerative change at the humeral head and greater tuberosity. Right humerus AP and lateral views: Again noted is degenerative change at the humeral head and greater tuberosity. No acute fracture is s een at the humerus. The humeral head again appears to be inferiorly displaced at the glenoid consiste nt with subluxation with widening of the acromiohumeral joint space. Bone density is normal and there is no abnormal periosteal reaction seen. IMPRESSION: Degenerative changes present at the humeral head and greater tuberosity. Subluxation of the humeral head at the glenoid with widening of the acromiohumeral joint space No acute fracture is evident. Right elbow 3 views: No acute fracture or dislocation is seen. The bone density is demineralized. No abnormal periosteal r eaction is seen. No joint effusion is evident. IMPRESSION: No acute abnormality evident at the right elbow. Electronically signed by: Belle Richter MD (11/23/2021 9:10 PM) DAKOTA
--- NOTE | 2021-11-23 21:22 | PHYS DOC ---
Past History Past Medical History: Diabetes, High Cholesterol, Hypertension, Other Additional Past Medical Histor: kidney disease, dialysis Past Surgical History: Cholecystectomy, , Other Additional Past Surgical Histo: D&C, AV SHUNT LEFT ARM Smoking: Non-smoker Alcohol Use: None Drug Use: None Adult General Chief Complaint Chief Complaint: MECHANICAL FALL HPI HPI Patient is a 61-year-old female who presents with right shoulder pain after tripping and falling onto her right side just before coming into the emergency department. Denies any head injuries, neck pain, pain or trouble swallowing, changes in vision, headache, chest pain, shortness of breath, abdominal pain, nausea, vomiting, diarrhea. Denies any trouble sitting, standing or walking. Denies any numbness/weakness/tingling. Review of Systems Review of Systems Review of systems otherwise unremarkable except noted in HPI Current Medications Current Medications Current Medications Medications (Trade) Dose Ordered Sig/Fernando Start Time Stop Time Status Last Admin Dose Admin Morphine Sulfate (Morphine 4mg Syringe) 4 mg 1X ONCE 11/23/21 20:15 11/23/21 20:16 DC 11/23/21 20:17 4 MG Allergies Allergies Allergies Coded Allergies Type Severity Reaction Last Updated Verified shellfish derived Allergy Intermediate 08/25/20 Yes Physical Exam Physical Exam Constitutional: Well developed, well nourished, no acute distress, non-toxic appearance. [] HENT: Normocephalic, atraumatic, Eyes: conjunctiva normal, no discharge. [] Neck: Normal range of motion, no tenderness, supple, no stridor. [] Cardiovascular:Heart rate regular rhythm, no murmur [] Lungs & Thorax: Bilateral breath sounds clear to auscultation [] Abdomen:soft, no tenderness, no masses, no pulsatile masses. [] Skin: Warm, dry, no erythema, no rash. [] Back: The entirety of the spine with no midline tenderness, bruising, step-offs Extremities: Neurovascular exam intact, right shoulder with some mild deformity and pain with passive and active range of motion, capillary refill normal Neurologic: Alert and oriented X 3, normal motor function, normal sensory function, able to sit, stand and walk without issue no focal deficits noted. [] Psychologic: Affect normal, judgement normal, mood normal. [] Current Patient Data Vital Signs Vital Signs Date Time Temp Pulse Resp B/P (MAP) Pulse Ox O2 Delivery O2 Flow Rate FiO2 11/23/21 20:17 20 100 Room Air 11/23/21 19:47 98.4 76 236/99 (144) EKG EKG [] Radiology/Procedures Radiology/Procedures [] Heart Score C/O Chest Pain: No Risk Factors: Risk Factors: DM, Current or recent (<one month) smoker, HTN, HLP, family history of CAD, obesity. Risk Scores: Risk Factors: DM, Current or recent (<one month) smoker, HTN, HLP, family history of CAD, obesity. Course & Med Decision Making Course & Med Decision Making Patient is a 61-year-old female who presents with a chief complaint of right shoulder pain after falling Vital signs notable for hypertension. Physical exam noted above. Given pain medicine and ice pack. Imaging with subluxation of the right humeral head. Given pain medicine and reduced successfully. Patient able to move arm and full range of motion at baseline with little discomfort. Discussed symptom management at home Given sling and advised on usage. Advised to follow-up in the morning with primary care physician to set up a follow-up next week for reevaluation Gave return precautions to the ED. Patient grateful, verbalized understanding and agreed with plan of discharge [] Dragon Disclaimer Dragon Disclaimer This electronic medical record was generated, in whole or in part, using a voice recognition dictation system. Departure Departure: Impression: Primary Impression: Shoulder subluxation Disposition: 02 SHORT TERM HOSPITAL Condition: STABLE Referrals: MATTHEW ZABALA (PCP) Patient Instructions: Shoulder Dislocation, Shoulder Immobilizer Additional Instructions: Thank you for coming into the emergency department tonight and allowing us to take care of you. Please read the attached information carefully to go over things we discussed. Please start Tylenol at 1000 mg every 8 hours, 600 mg of ibuprofen every 8 hours, ice and keep your sling on. Please call your primary care physician in the morning to update on your ED visit and set up a follow-up as soon as you can for reevaluation. Please come back with new or concerning symptoms as discussed. Please keep your sling on for the next couple of days until you follow-up with your primary care physician is much as possible. Please do a little stretching as we discussed and I demonstrated. SEB LIMA MD November 23, 2021 21:22
[2021-11-23] MEDS ORDERED: oxyCODONE/APAP 5/325 1 TAB TABLET PO ONE (21:45)
== END 2021-11-23 22:20 | disposition home or self-care (01) ==
LOC: ER 19:47
DX: S43.001A Unspecified subluxation of right shoulder joint, initial encounter (principal); E11.9 Type 2 diabetes mellitus without complications; E78.00 Pure hypercholesterolemia, unspecified; I10 Essential (primary) hypertension; Z91.013 Allergy to seafood; W01.0XXA Fall on same level from slipping, tripping and stumbling without subsequent striking against object, initial encounter; Y93.89 Activity, other specified; Y92.89 Other specified places as the place of occurrence of the external cause; Y99.8 Other external cause status
CPT/HCPCS: 71045; 73030; 73060; 73080; 96372; 99284; J2270

== ENCOUNTER → 2021-12-01 | Outpatient (CLI) | payer OTHER ==
[2021-11-23 19:47] VITALS: BP 236/99
--- NOTE | 2021-12-01 15:37 | RAD ---
EXAM: RIGHT SHOULDER 3 VIEWS. HISTORY: Right shoulder pain, fall. COMPARISON: 11/23/2021. FINDINGS: There is an impacted fracture of the right humeral surgical neck. Nondisplaced extension in to the greater tuberosity is suspected. The lesser tuberosity is also likely involved. Inferior sublu xation of the humerus is consistent with a joint effusion. Glenohumeral osteoarthritis appears moderate. Acromioclavicular joint spaces and alignment are mainta ined for patient age. IMPRESSION: 1. Impacted fracture of the right proximal humerus as above. 2. Moderate right glenohumeral osteoarthritis. Electronically signed by: Ramona Shankar MD (12/01/2021 3:35 PM) [id number]
== END ==
LOC: RAD 15:08
PROVIDERS: ATTEND Physician Assistant
DX: S43.001A Unspecified subluxation of right shoulder joint, initial encounter (principal); S42.211A Unspecified displaced fracture of surgical neck of right humerus, initial encounter for closed fracture; M19.011 Primary osteoarthritis, right shoulder; W19.XXXA Unspecified fall, initial encounter; Y93.89 Activity, other specified; Y92.89 Other specified places as the place of occurrence of the external cause; Y99.8 Other external cause status
CPT/HCPCS: 73030